=== PATIENT | male | born 1960 | race African-American/Black ===

== ENCOUNTER 2017-09-14 12:27 | Inpatient (IN) | payer OTHER ==
[2017-09-14] MEDS ORDERED: FAMOTIDINE 20 MG/2 ML VIAL IV ONE (13:58)
[2017-09-14] MEDS ORDERED: PANTOPRAZOLE 40 MG INJ ONE (13:58)
[2017-09-14 14:04] LABS: Absolute Lymphocytes (CBC) 1.6 K/uL (0.7-4.9); Absolute Monocytes 0.5 K/uL (0.1-1.3); Absolute Neutrophil 2.8 K/uL (1.8-8.0); Basophils % 0.5 % (0-1.3); Eosinophils % 0.8 % (0-4.4); Lymphocytes % 31.9 % (15.3-44.8); MCH 21.6 pg (27.0-35.0); MCV 66.8 fL (80-100); MPV 9.1 fL (7.6-11.3); Monocytes % 10.4 % (3.3-12.3); RBC Red Blood Cell Count 2.79 M/uL (4.33-5.43)
[2017-09-14 14:09] LABS: Protime INR 1.03
[2017-09-14 14:20] LABS: Hematocrit 18.6 % (39.6-49.0)
--- NOTE | 2017-09-14 14:22 | RAD REPORT ---
EXAM DESCRIPTION: Olga Single View09/14/2017 1:36 pm CLINICAL HISTORY: Shortness of breath COMPARISON: none FINDINGS: The lungs appear clear of acute infiltrate. The heart is mildly to moderately enlarged IMPRESSION: No acute abnormalities displayed
[2017-09-14 14:34] LABS: ALT/SGPT 22 U/L (12-78); AST/SGOT 27 U/L (15-37); Albumin 2.9 g/dL (3.4-5.0); Alkaline Phosphatase 72 U/L (45-117); BUN Blood Urea Nitrogen 46 mg/dL (7-18); Bicarbonate 27 mmol/L (21-32); Bilirubin Direct < 0.1 mg/dL (0-0.2); Bilirubin Total 0.2 mg/dL (0.2-1.0); CKMB Creatine Kinase MB 1.4 ng/mL (0.3-3.6); Creatine Phosphokinase 84 U/L (39-308); Glucose Level 113 mg/dL (74-106); Lipase 264 U/L (73-393); Magnesium 2.5 mg/dL (1.8-2.4); Potassium 4.5 mmol/L (3.5-5.1); Protein, Total 6.5 g/dL (6.4-8.2); Sodium Level 142 mmol/L (136-145)
--- NOTE | 2017-09-14 14:34 | EKG ---
Test Date: 2017-09-14 Test Time: 13:17:03 Fuse Cup Expander: DOMINIK MEASUREMENT RESULTS: Intervals: Rate: 73 GA: 230 QRSD: 92 QT: 392 QTc: 431 [place]: P: 62 GA: 230 QRS: 39 T: -23 INTERPRETIVE STATEMENTS: Sinus rhythm with 1st degree AV block with fusion complexes Left ventricular hypertrophy with repolarization abnormality Abnormal ECG No previous ECG available for comparison Electronically Signed On 09-14-17 14:33:20 CDT by Raymundo Contreras
[2017-09-14 15:05] LABS: Anisocytosis 1+; Blood Morphology Comment NOTED (NOT SEEN); Hypochromasia 2+; Platelet Estimate ADEQ; Polychromasia 1+; Urine White Blood Cell Casts OK
--- NOTE | 2017-09-14 15:44 | ER ---
Nurse's Notes [facility] Name: Ravindra Casas Age: 57 yrs Sex: Male : 1960 Arrival Date: 09/14/2017 Time: 12:27 Bed 13 Private MD: Diagnosis: Gastrointestinal hemorrhage, unspecified;Anemia in chronic diseases classified elsewhere Presentation: 09/14 12:28 Presenting complaint: EMS states: sent to ER for evaluation of low HGB 6.1. Transition ss of care: patient was received from another setting of care (long-term care facility), [facility]. Onset of symptoms is unknown. Risk Assessment: Do you want to hurt yourself or someone else? Patient reports no desire to harm self or others. Initial Sepsis Screen: Does the patient meet any 2 criteria? No. Patient's initial sepsis screen is negative. Does the patient have a suspected source of infection? No. Patient's initial sepsis screen is negative. Care prior to arrival: None. 12:28 Method Of Arrival: EMS: [facility] ss 12:28 Acuity: TRAVIS 3 ss Historical: - Allergies: 14:52 No Known Allergies; ph - Home Meds: 14:52 Acidophilus Oral cap [Active]; amlodipine 10 mg tab 1 tab once daily [Active]; aspirin ph 81 mg Oral TbEC 1 tab once daily [Active]; Bactrim DS 800-160 mg Oral tab 1 tab every 12 hours [Active]; Cardura 2 mg Oral tab 1 tab twice a day [Active]; carvedilol 25 mg oral tab 1 tab 2 times per day [Active]; clopidogrel 75 mg oral tab 1 tab once daily [Active]; ferrous sulfate 325 mg (65 mg iron) Oral tab twice a day [Active]; guanfacine 1 mg Oral tab 2 tabs nightly [Active]; hydralazine 100 mg Oral tab 1 tab 3 times per day [Active]; minocycline 100 mg Oral cap 1 cap every 12 hours [Active]; acetaminophen-codeine 300-30 mg Oral tab 1 tab every 8 hours [Active]; - PMHx: 14:52 Diabetes - NIDDM; CAD; Ulcers; gastric; Hypertension; CVA; Anemia; ph - Immunization history:: Adult Immunizations up to date. - Social history:: Smoking status: Patient/guardian denies using tobacco. - Ebola Screening: : No symptoms or risks identified at this time. Screenin:52 Abuse screen: Denies threats or abuse. Denies injuries from another. Nutritional ph screening: No deficits noted. Tuberculosis screening: No symptoms or risk factors identified. Fall Risk No fall in past 12 months (0 pts). Secondary diagnosis (15 points) CVA, IV access (20 points). Ambulatory Aid- None/Bed Rest/Nurse Assist (0 pts). Gait- Impaired (20 pts.). Mental Status- Overestimates/Forgets Limitations (15 pts.). Total Hall Fall Scale indicates High Risk Score (45 or more points). Fall prevention measures have been instituted. Side Rails Up X 2 Placed Close to Nursing Station Frequent Obs/Assessments Occuring As available patient and family educated on Fall Prevention Program and Strategies. Assessment: 13:00 General: Appears in no apparent distress. comfortable, slender, Behavior is calm, ph cooperative. Pain: Denies pain. Neuro: Level of Consciousness is awake, alert, obeys commands, Oriented to person, place. Cardiovascular: Denies chest pain, nausea, shortness of breath, vomiting, Capillary refill < 3 seconds Patient's skin is warm and dry. Respiratory: Airway is patent Respiratory effort is even, unlabored. GI: Abdomen is flat, non-distended, PEG tube in place, clamped. Site clean. Patient currently denies diarrhea, nausea, vomiting. Derm: Skin is intact, is healthy with good turgor, Skin is dry, Skin is normal, Skin temperature is warm. 14:30 Reassessment: Patient appears in no apparent distress at this time. No changes from ph previously documented assessment. Patient and/or family updated on plan of care and expected duration. Pain level reassessed. 15:30 Reassessment: Patient appears in no apparent distress at this time. Patient and/or ph family updated on plan of care and expected duration. Pain level reassessed. Pt resting quietly, watching TV, denies pain, VSS. 16:39 Reassessment: Patient appears in no apparent distress at this time. Patient and/or ph family updated on plan of care and expected duration. Pain level reassessed. Pt awake and alert, oriented to person and place only, awaiting blood products from lab, pt denies pain or nausea, brief checked and found to be dry w/ no stool noted. 18:09 Reassessment: Patient appears in no apparent distress at this time. Patient and/or ph family updated on plan of care and expected duration. Pain level reassessed. Report called to Elbert Rincon RN, pt waiting to be transported to 4th floor. 18:22 Reassessment: Patient appears in no apparent distress at this time. Patient and/or ph family updated on plan of care and expected duration. Pain level reassessed. Pt cleaned of incontinence prior to being transported to floor, large amount of urine noted, small amount of black, tarry stool also noted w/ no diarrhea. Vital Signs: 12:28 BP 141 / 67; Pulse 74; Resp 16; Temp 98.2(TE); Pulse Ox 100% on R/A; ss 13:30 BP 151 / 69; Pulse 71; Resp 18; Pulse Ox 99% on R/A; ph 14:30 BP 148 / 66; Pulse 71; Resp 16; Pulse Ox 99% on R/A; ph 15:30 BP 142 / 78; Pulse 72; Resp 16; Pulse Ox 99% on R/A; ph 16:38 BP 150 / 74; Pulse 73; Resp 16; Pulse Ox 98% on R/A; ph 18:10 BP 137 / 66; Pulse 72; Resp 16; Temp 98.0; Pulse Ox 100% on R/A; ph ED Course: 12:27 Patient arrived in ED. ss 12:28 Arm band placed on right wrist. ss 12:32 Triage completed. ss 12:33 Dennis Miranda PA is PHCP. cp 12:33 Dennis Rodriguez MD is Attending Physician. cp 12:34 Served as a personal banking representative during rectal exam. + occult blood (stool). ss 12:37 Jossy Moya, ANY is Primary Nurse. ss 13:34 EKG done, by aviation safety technician. reviewed by Dennis DELGADO. at1 13:35 Initial lab(s) drawn, by tx, sent to lab. T\T\S collected, blood band applied to patient. dh3 Inserted saline lock: 22 gauge in right forearm, using aseptic technique. Blood collected. 13:36 XRAY Chest (1 view) In Process Unspecified. EDMS 13:43 X-ray completed. Portable x-ray completed in exam room. Patient tolerated procedure ag1 well. 14:17 Ayah Mary, RN is Primary Nurse. ph 14:54 Patient has correct armband on for positive identification. Placed in gown. Bed in low ph position. Call light in reach. Side rails up X2. nuclear monitoring technician on. Pulse ox on. NIBP on. Warm blanket given. 15:42 Chapis Soria MD is Hospitalizing Provider. cp 18:10 Patient admitted, IV remains in place. ph Administered Medications: 14:01 Drug: ProTONIX 40 mg Route: IVP; Site: right forearm; ph 16:42 Follow up: Response: No adverse reaction ph 14:01 Drug: Pepcid 20 mg Route: IVP; Site: right forearm; ph 16:42 Follow up: Response: No adverse reaction ph 16:20 Drug: Zofran 4 mg Route: IVP; Site: right forearm; ph 16:42 Follow up: Response: No adverse reaction ph 16:45 Drug: ProTONIX 8 mg/hr Route: IV; Rate: 25 ml/hr; Site: right forearm; ph 17:51 Follow up: IV Status: Infusion continued upon admission ph 17:52 Follow up: Response: No adverse reaction ph Outcome: 15:43 Decision to Hospitalize by Provider. cp 18:09 Admitted to Tele accompanied by tech, via stretcher, room 430, with chart, Report ph called to Elbert Rincon RN 18:09 Condition: stable 18:09 Instructed on the need for admit. 18:23 Patient left the ED. ph Signatures: Dispatcher [employer] EDMS Jossy Moya RN RN ss Jeanie hinson, mud worker EKG Tat1 Ayah Mary RN RN ph [place], Ashley ag1 Dennis Miranda PA PA Rajni Bryan 3
--- NOTE | 2017-09-14 15:44 | EDPHYS ---
Physician Documentation [facility] Name: Ravindra Casas Age: 57 yrs Sex: Male : 1960 Arrival Date: 09/14/2017 Time: 12:27 Bed 13 Private MD: ED Physician Dennis Rodriguez HPI: 09/14 13:00 This 57 yrs old Black Male presents to ER via EMS with complaints of Abnormal Lab cp Results. 13:00 low hemoglobin and hematocrit level. cp 13:00 Onset: The symptoms/episode began/occurred at an unknown time. Severity of symptoms: in cp the emergency department the symptoms are unchanged. Patient is resident of [facility] and is being referred to ED for evaluation of low hemoglobin and hematocrit. Historical: - Allergies: 14:52 No Known Allergies; ph - Home Meds: 14:52 Acidophilus Oral cap [Active]; amlodipine 10 mg tab 1 tab once daily [Active]; aspirin ph 81 mg Oral TbEC 1 tab once daily [Active]; Bactrim DS 800-160 mg Oral tab 1 tab every 12 hours [Active]; Cardura 2 mg Oral tab 1 tab twice a day [Active]; carvedilol 25 mg oral tab 1 tab 2 times per day [Active]; clopidogrel 75 mg oral tab 1 tab once daily [Active]; ferrous sulfate 325 mg (65 mg iron) Oral tab twice a day [Active]; guanfacine 1 mg Oral tab 2 tabs nightly [Active]; hydralazine 100 mg Oral tab 1 tab 3 times per day [Active]; minocycline 100 mg Oral cap 1 cap every 12 hours [Active]; acetaminophen-codeine 300-30 mg Oral tab 1 tab every 8 hours [Active]; - PMHx: 14:52 Diabetes - NIDDM; CAD; Ulcers; gastric; Hypertension; CVA; Anemia; ph - Immunization history:: Adult Immunizations up to date. - Social history:: Smoking status: Patient/guardian denies using tobacco. - Ebola Screening: : No symptoms or risks identified at this time. ROS: 13:05 Hematologic/Lymphatic: Positive for anemia. cp 13:05 All other systems are negative. 13:05 Unable to obtain ROS due to patient's inability to understand questions. Exam: 13:12 Constitutional: The patient appears in no acute distress, alert, awake, cp non-diaphoretic, non-toxic, well developed, frail. 13:12 Head/Face: Normocephalic, atraumatic. cp 13:12 Eyes: Periorbital structures: appear normal, Pupils: equal, round, and reactive to light and accomodation, Conjunctiva: normal, no exudate, no injection, Sclera: no appreciated abnormality, Lids and lashes: appear normal, bilaterally. 13:12 ENT: External ear(s): are unremarkable, Ear canal(s): are normal, clear, TM's: bulging, is not appreciated, bilaterally, dullness, bilaterally, erythema, is not appreciated, bilaterally, Nose: is normal, Mouth: Lips: moist, Oral mucosa: moist, Posterior pharynx: is normal, airway is patent, no erythema, no exudate. 13:12 Neck: ROM/movement: is normal, is supple, without pain, no range of motions limitations. 13:12 Chest/axilla: Inspection: normal, Palpation: is normal, no crepitus, no tenderness. 13:12 Cardiovascular: Rate: normal, Rhythm: regular, JVD: is not appreciated. 13:12 Respiratory: the patient does not display signs of respiratory distress, Respirations: normal, no use of accessory muscles, no retractions, no splinting, no tachypnea, labored breathing, is not present, Breath sounds: are clear throughout, no decreased breath sounds, no stridor, no wheezing. 13:12 Abdomen/GI: Inspection: noted PEG tube in place LUQ, Bowel sounds: active, all quadrants, Palpation: abdomen is soft and non-tender, in all quadrants, rebound tenderness, is not appreciated, voluntary guarding, is not appreciated, involuntary guarding, is not appreciated, Rectal exam: Stool: guaiac positive, black. 13:12 Back: pain, is absent. 13:12 Musculoskeletal/extremity: Exam is negative for acute changes, deformity, injury. 13:12 Skin: cellulitis, is not appreciated, injury, is not appreciated. 13:12 Neuro: Orientation: no acute changes, per EMS, Mentation: no acute changes, per EMS. 13:25 ECG was reviewed by the Attending Physician. cp Vital Signs: 12:28 BP 141 / 67; Pulse 74; Resp 16; Temp 98.2(TE); Pulse Ox 100% on R/A; ss 13:30 BP 151 / 69; Pulse 71; Resp 18; Pulse Ox 99% on R/A; ph 14:30 BP 148 / 66; Pulse 71; Resp 16; Pulse Ox 99% on R/A; ph 15:30 BP 142 / 78; Pulse 72; Resp 16; Pulse Ox 99% on R/A; ph 16:38 BP 150 / 74; Pulse 73; Resp 16; Pulse Ox 98% on R/A; ph 18:10 BP 137 / 66; Pulse 72; Resp 16; Temp 98.0; Pulse Ox 100% on R/A; ph MDM: 12:35 Patient medically screened. cp 13:00 Differential Diagnosis upper GI bleed, anemia, lower GI bleed, anemia of chronic cp disease. 15:30 Data reviewed: vital signs, nurses notes, lab test result(s), EKG, radiologic studies, cp plain films. 15:30 Test interpretation: by ED physician or midlevel provider: ECG, plain radiologic cp studies. 15:35 Physician consultation: Shan Bill MD was called at 15:35, was contacted at 15:36, cp regarding consult, patient's condition, would like admission per Dr. Chapis Soria MD. 15:40 Physician consultation: Chapis Soria MD was contacted at 15:40, regarding admission, cp to the medical/surgical unit. 09/14 12:45 Order name: Basic Metabolic Panel; Complete Time: 14:36 cp 09/14 14:36 Interpretation: Normal except: CL 109; GLUC 113; BUN 46; CRE 1.80; GFR 48. cp 09/14 12:45 Order name: CBC with Diff cp 09/14 14:36 Interpretation: Normal except: RBC 2.79; HGB 6.0; HCT 18.6; MCV 66.8; MCH 21.6. cp 09/14 12:45 Order name: Ckmb; Complete Time: 14:36 cp 09/14 12:45 Order name: CPK; Complete Time: 14:36 cp 09/14 12:45 Order name: LFT's; Complete Time: 14:36 cp 09/14 12:45 Order name: Magnesium; Complete Time: 14:36 cp 09/14 12:45 Order name: PT-INR; Complete Time: 14:36 cp 09/14 12:45 Order name: Ptt, Activated; Complete Time: 14:36 cp 09/14 12:45 Order name: Troponin (emerg Dept Use Only); Complete Time: 14:36 cp 09/14 12:45 Order name: Type And Screen cp 09/14 12:45 Order name: Lipase; Complete Time: 14:36 cp 09/14 14:20 Order name: CBC Smear Scan EDKY 09/14 14:48 Order name: ABO/RH no charge EDMS 09/14 15:38 Order name: Bb Add On eb 09/14 12:45 Order name: XRAY Chest (1 view); Complete Time: 14:36 cp 09/14 12:45 Order name: EKG; Complete Time: 12:46 cp 09/14 12:45 Order name: Cardiac monitoring; Complete Time: 13:48 cp 09/14 12:45 Order name: EKG - Nurse/Tech; Complete Time: 13:48 cp 09/14 12:45 Order name: IV Saline Lock; Complete Time: 13:48 cp 09/14 12:45 Order name: Labs collected and sent; Complete Time: 13:49 cp 09/14 12:45 Order name: O2 Per Protocol; Complete Time: 13:49 cp 09/14 12:45 Order name: O2 Sat Monitoring; Complete Time: 13:49 cp 09/14 15:41 Order name: Packed RBC Leukored -1 EDMS EC:25 Rate is 73 beats/min. Rhythm is regular. IN interval is prolonged at 230 msec. QRS cp interval is normal. QT interval is normal. T waves are Peaked in leads V2, V3, V4. Interpreted by me. Reviewed by me. Administered Medications: 14:01 Drug: ProTONIX 40 mg Route: IVP; Site: right forearm; ph 16:42 Follow up: Response: No adverse reaction ph 14:01 Drug: Pepcid 20 mg Route: IVP; Site: right forearm; ph 16:42 Follow up: Response: No adverse reaction ph 16:20 Drug: Zofran 4 mg Route: IVP; Site: right forearm; ph 16:42 Follow up: Response: No adverse reaction ph 16:45 Drug: ProTONIX 8 mg/hr Route: IV; Rate: 25 ml/hr; Site: right forearm; ph 17:51 Follow up: IV Status: Infusion continued upon admission ph 17:52 Follow up: Response: No adverse reaction ph Disposition: 18:30 Chart complete. 09/15 06:44 Co-signature as Attending Physician, Dennis Rodriguez MD I agree with the assessment and ranjan plan of care. Disposition: 09/14/17 15:43 Hospitalization ordered by Chapis Soria for Inpatient Admission. Preliminary diagnosis are Gastrointestinal hemorrhage, unspecified, Anemia in chronic diseases classified elsewhere. - Bed requested for Telemetry/MedSurg (Inpatient). - Status is Inpatient Admission. ph - Condition is Stable. - Problem is new. - Symptoms are unchanged. UTI on Admission? No Signatures: Dispatcher [employer] Katiana Philip RN RN dw Dennis Rodriguez MD MD cha Hall, Patricia, RN RN Dennis Miranda PA PA cp Corrections: (The following items were deleted from the chart) 09/14 16:32 15:43 Hospitalization Ordered by Chapis Soria MD for Inpatient Admission. Preliminary cp diagnosis is Gastrointestinal hemorrhage, unspecified; Anemia in chronic diseases classified elsewhere. Bed requested for Intensive Care Unit. Status is Inpatient Admission. Condition is Stable. Problem is new. Symptoms are unchanged. UTI on Admission? No. cp 17:23 16:32 09/14/2017 15:43 Hospitalization Ordered by Chapis Soria MD for Inpatient dw Admission. Preliminary diagnosis is Gastrointestinal hemorrhage, unspecified; Anemia in chronic diseases classified elsewhere. Bed requested for Telemetry/MedSurg (Inpatient). Status is Inpatient Admission. Condition is Stable. Problem is new. Symptoms are unchanged. UTI on Admission? No. cp 18:23 17:23 09/14/2017 15:43 Hospitalization Ordered by Chapis Soria MD for Inpatient ph Admission. Preliminary diagnosis is Gastrointestinal hemorrhage, unspecified; Anemia in chronic diseases classified elsewhere. Bed requested for Telemetry/MedSurg (Inpatient). Status is Inpatient Admission. Condition is Stable. Problem is new. Symptoms are unchanged. UTI on Admission? No. dw
[2017-09-14] MEDS ORDERED: ONDANSETRON 4 MG/2 ML VIAL ONE (16:30)
[2017-09-14] MEDS: PANTOPRAZOLE INJ 80 MG in NA CHLORIDE 0.9% 250 ML IV SCH (17:00)
--- NOTE | 2017-09-14 17:18 | P.HP ---
Certification for Inpatient Patient admitted to: Inpatient With expected LOS: >2 Midnights Patient will require the following post-hospital care: None Practitioner: I am a practitioner with admitting privileges, knowledge of patient current condition, hospital course, and medical plan of care. Services: Services provided to patient in accordance with Admission requirements found in Title 42 Section 412.3 of the Code of Federal Regulations Patient History Date of Service: 09/14/17 Primary Care Provider: Dr Sanford at [facility] Reason for admission: Anemia History of Present Illness: This is a 57-year-old male with significant past medical history of hypertension , diabetes, CVA with residual weakness and dementia, CAD, gastric ulcer who [facility] ED [facility]. Patient had lab work done which was consistent with hemoglobin of 5.9 and thus was sent over to the hospital for further workup. Patient has been having some crack tarry stools at the [facility] as well. Currently patient is unable to provide any information as patient is demented and no family member is at bedside to get more information. Most of the information was collected by the ER physician. ER physician stated that patient does not have any other associated symptoms that they were notified from the [facility] other than him having low hemoglobin and black tarry stools. Home medications list reviewed: Yes - Past Medical/Surgical History Diabetic: Yes -: HTN -: Diabetes -: CVA -: CAD -: Gastric ulcer Past Surgical History: Unable to obtain - Family History Family History: Reviewed- Non-Contributory - Social History Smoking Status: Unknown if ever smoked Place of Residence: Skilled Nursing Review of Systems General: As per HPI Physical Examination - Physical Exam General: Alert, Demented, Mild distress HEENT: Atraumatic Neck: Supple Respiratory: Normal air movement, Dull Cardiovascular: Regular rate/rhythm, Normal S1 S2 Gastrointestinal: Normal bowel sounds, Soft and benign, Non-distended, No tenderness Musculoskeletal: No tenderness Integumentary: No rashes Neurological: Normal speech, Normal tone Lymphatics: No axilla or inguinal lymphadenopathy - Studies Laboratory Data (last 24 hrs) 09/14/17 13:35: PT 12.1, INR 1.03, APTT 31.4 09/14/17 13:35: WBC 5.0, Hgb 6.0 L*, Hct 18.6 L*, Plt Count 249 09/14/17 13:35: Sodium 142, Potassium 4.5, BUN 46 H, Creatinine 1.80 H, Glucose 113 H, Magnesium 2.5 H, Total Bilirubin 0.2, AST 27, ALT 22, Alkaline Phosphatase 72, Lipase 264 Assessment and Plan - Problems (Diagnosis) (1) GI bleed Current Visit: Yes Status: Acute Plan: GI bleeding with Acute blood loss anemia. Pt with black tarry stools and Hgb of 6 on presentation -GI consulted. Awaiting reccs -IV protonix ggt -H/H q4h -Transfuse 2 units PRBC for now -IV fluids -Hold anticoagulation Qualifiers: GI bleed type/associated pathology: melena Qualified Code(s): K92.1 - Melena (2) HTN (hypertension) Current Visit: Yes Status: Chronic Plan: Restart home medication Qualifiers: Hypertension type: essential hypertension Qualified Code(s): I10 - Essential (primary) hypertension (3) Diabetes Current Visit: Yes Status: Chronic Plan: ISS Qualifiers: Diabetes mellitus type: type 2 Diabetes mellitus intermediate insulin use: without intermediate use Diabetes mellitus complication status: without complication Qualified Code(s): E11.9 - Type 2 diabetes mellitus without complications (4) CVA (cerebral vascular accident) Current Visit: Yes Status: Chronic Qualifiers: CVA mechanism: unspecified Qualified Code(s): I63.9 - Cerebral infarction, unspecified (5) History of gastric ulcer Current Visit: Yes Status: Chronic Plan: h/o Of Gastric Ulcers in the past -S.P Banding Discharge Plan: Home Plan to discharge in: 72 Hours - Advance Directives Does patient have a Living Will: No Does patient have a Durable POA for Healthcare: No - Code Status/Comfort Care Code Status Assessed: Yes Critical Care: No
[2017-09-14] MEDS ORDERED: PANTOPRAZOLE INJ 80 MG in NA CHLORIDE 0.9% 250 ML IV SCH (18:42)
[2017-09-14] MEDS: INSULIN -REGULAR HUMAN 50 UNIT/0.5 ML ML SQ SCH ×2 (18:42→20:20)
[2017-09-14] MEDS ORDERED: ACETAMINOPHEN 500 MG TAB PO PRN (18:42)
[2017-09-14] MEDS ORDERED: ONDANSETRON 4 MG/2 ML VIAL IV PRN (18:42)
[2017-09-14 19:08] LABS: Hematocrit 19.3 % (39.6-49.0)
[2017-09-14] MEDS: NA CHLORIDE 0.9% 1,000 ML IV SCH (20:20)
[2017-09-14] MEDS: ENOXAPARIN 40 MG/0.4 ML SQ SCH (20:20)
[2017-09-14] MEDS ORDERED: GLUCAGON 1 MG/VIAL IM PRN (21:47)
[2017-09-14] MEDS ORDERED: D50W 25 GM/50 ML SYRINGE IV PRN (21:47)
[2017-09-14 22:50] LABS: Hematocrit 19.4 % (39.6-49.0)
[2017-09-15] MEDS ORDERED: NA CHLORIDE 0.9% 500 ML ONE (01:17)
[2017-09-15] MEDS: PANTOPRAZOLE INJ 80 MG in NA CHLORIDE 0.9% 250 ML IV SCH ×4 (03:06→23:17)
[2017-09-15] MEDS: NA CHLORIDE 0.9% 1,000 ML IV SCH ×4 (04:42→21:46)
[2017-09-15] MEDS: INSULIN -REGULAR HUMAN 50 UNIT/0.5 ML ML SQ SCH ×4 (06:00→17:44)
[2017-09-15 06:42] LABS: Absolute Lymphocytes (CBC) 1.9 K/uL (0.7-4.9); Absolute Monocytes 0.5 K/uL (0.1-1.3); Absolute Neutrophil 2.4 K/uL (1.8-8.0); Basophils % 0.6 % (0-1.3); Bilirubin Total 0.4 mg/dL (0.2-1.0); Eosinophils % 1.7 % (0-4.4); Hematocrit 22.8 % (39.6-49.0); Lymphocytes % 38.4 % (15.3-44.8); MCH 23.3 pg (27.0-35.0); MCV 71.5 fL (80-100); MPV 9.1 fL (7.6-11.3); Magnesium 2.3 mg/dL (1.8-2.4); Monocytes % 9.5 % (3.3-12.3); Phosphorus 3.1 mg/dL (2.5-4.9); Potassium 4.3 mmol/L (3.5-5.1); Protein, Total 6.6 g/dL (6.4-8.2)
[2017-09-15] MEDS: ENOXAPARIN 40 MG/0.4 ML SQ SCH (08:45)
[2017-09-15] MEDS ORDERED: HYDRALAZINE HCL 20 MG/ML VIAL IV ONE ×2 (10:06→16:40)
--- NOTE | 2017-09-15 14:57 | P.PN ---
Subjective Date of Service: 09/15/17 Primary Care Provider: Dr Sanford at the [place] Chief Complaint: Anemia Subjective: No C/O voiced, Improving, NPO, Doing well Scheduled for EGD today. At baseline patient is demented and debilitate due to CVA in the past. Review of Systems General: As per HPI Physical Examination - Vital Signs Temperature: 97.5 F Blood Pressure: 168/75 Pulse: 71 Respirations: 16 Pulse Ox (%): 100 - Physical Exam General: Alert, Oriented x1, Demented HEENT: Atraumatic Neck: Supple Respiratory: Clear to auscultation bilaterally, Normal air movement Cardiovascular: Regular rate/rhythm, Normal S1 S2 Gastrointestinal: Normal bowel sounds, Soft and benign, Non-distended, No tenderness Musculoskeletal: No tenderness Integumentary: No rashes Neurological: Normal tone, Abnormal speech, Abnormal affect Lymphatics: No axilla or inguinal lymphadenopathy - Studies Medications List Reviewed: Yes Assessment & Plan - Problems (Diagnosis) (1) GI bleed Onset Date: 09/15/17 Current Visit: Yes Status: Acute Plan: GI bleeding with Acute blood loss anemia. Pt with black tarry stools and Hgb of 6 on presentation -GI consulted. Reccs Appreciated -Scheduled for EGD today. -IV protonix ggt -S/p Transfuse 2 units PRBC -IV fluids -Hold anticoagulation Qualifiers: GI bleed type/associated pathology: melena Qualified Code(s): K92.1 - Melena (2) HTN (hypertension) Onset Date: 09/15/17 Current Visit: Yes Status: Chronic Plan: Restart home medication Qualifiers: Hypertension type: essential hypertension Qualified Code(s): I10 - Essential (primary) hypertension (3) Diabetes Onset Date: 09/15/17 Current Visit: Yes Status: Chronic Plan: ISS Qualifiers: Diabetes mellitus type: type 2 Diabetes mellitus buttermilk drier operator insulin use: without buttermilk drier operator use Diabetes mellitus complication status: without complication Qualified Code(s): E11.9 - Type 2 diabetes mellitus without complications (4) CVA (cerebral vascular accident) Onset Date: 09/15/17 Current Visit: Yes Status: Chronic Qualifiers: CVA mechanism: unspecified Qualified Code(s): I63.9 - Cerebral infarction, unspecified (5) History of gastric ulcer Current Visit: Yes Status: Chronic Plan: h/o Of Gastric Ulcers in the past -S.P Banding Discharge Plan: Jail Plan to discharge in: 48 Hours - Code Status/Comfort Care Code Status Assessed: Yes Critical Care: No
[2017-09-15 15:23] LABS: Hematocrit 28.6 % (39.6-49.0)
[2017-09-15] MEDS: GLUCERNA 1.5 CAL 1,000 ML BOT FT SCH (17:09)
[2017-09-15] MEDS ORDERED: LORazepam 2 MG/ML VIAL IV ONE (17:29)
[2017-09-15] MEDS: FERROUS SULFATE 325 MG TAB PO SCH (21:00)
[2017-09-15] MEDS: CARVEDILOL 25 MG TAB PO SCH (21:32)
[2017-09-15] MEDS: GUANFACINE HCL 1 MG TAB PO SCH (21:33)
[2017-09-15] MEDS: HYDRALAZINE HCL 10 MG TABLET PO SCH (21:33)
[2017-09-15] MEDS: DOXAZOSIN 2 MG TAB PO SCH (21:33)
[2017-09-16] MEDS: NA CHLORIDE 0.9% 1,000 ML IV SCH ×3 (00:42→15:12)
[2017-09-16] MEDS ORDERED: CLONIDINE HCL 0.3 MG TAB FT ONE (01:29)
[2017-09-16] MEDS ORDERED: HYDROMORPHONE HCL 2 MG/ML inj ONE (01:46)
[2017-09-16] MEDS ORDERED: HYDROMORPHONE HCL 1 MG/ML INJ IV PRN (04:28)
[2017-09-16] MEDS ORDERED: HYDRALAZINE HCL 20 MG/ML VIAL IV PRN (04:28)
[2017-09-16] MEDS: INSULIN -REGULAR HUMAN 50 UNIT/0.5 ML ML SQ SCH ×4 (06:00→18:00)
[2017-09-16 06:13] LABS: Absolute Lymphocytes (CBC) 1.1 K/uL (0.7-4.9); Absolute Monocytes 0.4 K/uL (0.1-1.3); Absolute Neutrophil 2.5 K/uL (1.8-8.0); Basophils % 0.5 % (0-1.3); Eosinophils % 3.7 % (0-4.4); Hematocrit 28.8 % (39.6-49.0); Lymphocytes % 26.8 % (15.3-44.8); MCH 23.4 pg (27.0-35.0); MCV 71.3 fL (80-100); MPV 8.9 fL (7.6-11.3); Monocytes % 9.4 % (3.3-12.3); RBC Red Blood Cell Count 4.04 M/uL (4.33-5.43)
[2017-09-16 06:18] LABS: Albumin 2.9 g/dL (3.4-5.0); Bilirubin Total 0.3 mg/dL (0.2-1.0); Magnesium 2.2 mg/dL (1.8-2.4); Phosphorus 2.5 mg/dL (2.5-4.9); Potassium 4.5 mmol/L (3.5-5.1); Protein, Total 6.6 g/dL (6.4-8.2)
[2017-09-16] MEDS: HYDRALAZINE HCL 10 MG TABLET PO SCH ×3 (09:00→20:22)
[2017-09-16] MEDS ORDERED: AMLODIPINE 10 MG TAB PO SCH (09:00)
[2017-09-16] MEDS: CARVEDILOL 25 MG TAB PO SCH ×2 (09:00→20:22)
[2017-09-16] MEDS: ENOXAPARIN 40 MG/0.4 ML SQ SCH (09:00)
[2017-09-16] MEDS: FERROUS SULFATE 325 MG TAB PO SCH ×2 (09:00→20:23)
[2017-09-16] MEDS: ASPIRIN EC 81 MG TAB PO SCH (09:00)
[2017-09-16] MEDS: DOXAZOSIN 2 MG TAB PO SCH (09:00)
[2017-09-16] MEDS: PANTOPRAZOLE INJ 80 MG in NA CHLORIDE 0.9% 250 ML IV SCH ×2 (10:13→17:50)
[2017-09-16] MEDS ORDERED: EPINEPHRINE/PF 1 MG/ML AMP ONE (10:51)
[2017-09-16] MEDS ORDERED: NA CHLORIDE 0.9% 1,000 ML ONE (11:10)
[2017-09-16] MEDS ORDERED: LIDOCAINE 1% MPF 5 ML VIAL ONE (11:36)
[2017-09-16] MEDS ORDERED: PROPOFOL 200 MG/20 ML VIAL IV ONE ×2 (11:36)
[2017-09-16] MEDS ORDERED: EPHEDRINE SULF 50 MG/ML SYR ONE (12:58)
--- NOTE | 2017-09-16 13:07 | ENDO RPT ---
[address], [address] EGD PROCEDURE REPORT EXAM DATE: 09/16/2017 PATIENT NAME: Ravindra Casas MR#: [id number] BIRTHDATE: 1960 ATTENDING: Shan Bill Dr STATUS: inpatient - 7 CORPORATE PLANNER: Ni Felix and Minerva Easley RN INDICATIONS: The patient is a 57 yr old Male here for an EGD due to melenic bleeding and anemia PROCEDURE PERFORMED: EGD with biopsy MEDICATIONS: Per Anesthesia. TOPICAL ANESTHETIC: none CONSENT: The patient understands the risks and benefits of the procedure and understands that these risks include, but are not limited to: sedation, allergic reaction, infection, perforation and/or bleeding. Alternative means of evaluation and treatment include, among others: physical exam, x-rays, and/or surgical intervention. The patient elects to proceed with this endoscopic procedure. DESCRIPTION OF PROCEDURE: During intra-op preparation period all mechanical medical equipment was checked for proper function. Hand hygiene and appropriate measures for infection prevention was taken. Procedure, possible complications, and alternatives including but not limited to the possibility of bleeding, perforation, tear, infection, sepsis, need for surgery, need for blood transfusion, and anesthesia related complications were explained to the patient. After the risks, benefits and alternatives of the procedure were thoroughly explained, Informed consent was verified, confirmed and timeout was successfully executed by the treatment team. The patient was placed in the left lateral position. The patient was anesthetized with topical anesthesia. Through the anesthetized oropharyngeal area, the scope was passed without any difficulty. The [id number] ([id number]) endoscope was introduced through the mouth and advanced to the third portion of the duodenum. Retroflexed views revealed a small hiatal hernia. The gastroscope was then slowly withdrawn and removed. A small hiatal hernia was found Mild gastritis was found in the antrum. Multiple biopsies were obtained and sent to pathology. Mild duodenitis was found in the bulb of the duodenum. Duodenitis with black/white spotted pattern was found in the second / third portions of the duodenum. Multiple biopsies were obtained and sent to pathology. ADVERSE EVENTS: There were no complications. IMPRESSIONS: 1. Small hiatal hernia 2. Mild gastritis in the antrum 3. Mild duodenitis with two erosions in the bulb of the duodenum 4. Duodenitis with black/white spotted pattern in the second / third portions of the duodenum, s/p biopsies RECOMMENDATIONS: 1. await biopsy results 2. acid suppression therapy REPEAT EXAM: Shan Bill Dr eSigned: Shan Bill Dr 09/16/2017 1:07 PM cc: CPT CODES: ICD9 CODES: PATIENT NAME: Ravindra Casas MR#: [id number]
--- NOTE | 2017-09-16 13:09 | P.PN ---
Subjective Date of Service: 09/16/17 Primary Care Provider: Dr Sanford at the [facility] Chief Complaint: Anemia Pt seen and examined at bedside. Chart reviewed. Scheduled for EGD today. At baseline patient is demented and debilitate due to CVA in the past. Was not able to get EGD yesterday as we were not able to obtain Consent Review of Systems General: As per HPI Physical Examination - Vital Signs Temperature: 97.1 F Blood Pressure: 138/65 Pulse: 62 Respirations: 18 Pulse Ox (%): 99 - Physical Exam General: Alert, Demented HEENT: Atraumatic Neck: Supple, JVD not distended Respiratory: Normal air movement, Expiratory wheezes, Inspiratory wheezes Cardiovascular: Regular rate/rhythm, Normal S1 S2 Gastrointestinal: Normal bowel sounds, Soft and benign, Non-distended, No tenderness, Other (PEG tube in place ) Musculoskeletal: No tenderness Integumentary: No rashes Neurological: Normal tone, Abnormal speech, Abnormal affect Lymphatics: No axilla or inguinal lymphadenopathy - Studies Medications List Reviewed: Yes Assessment & Plan - Problems (Diagnosis) (1) GI bleed Onset Date: 09/15/17 Current Visit: Yes Status: Acute Plan: GI bleeding with Acute blood loss anemia. Pt with black tarry stools and Hgb of 6 on presentation. -GI consulted. Reccs Appreciated -Scheduled for EGD today. -IV protonix ggt and IV fluids -S/p Transfuse 2 units PRBC hgb improved to 9.3. However patient continues with Black tarry stools. -Hold anticoagulation Qualifiers: GI bleed type/associated pathology: melena Qualified Code(s): K92.1 - Melena (2) HTN (hypertension) Onset Date: 09/15/17 Current Visit: Yes Status: Chronic Plan: Restart home medication Qualifiers: Hypertension type: essential hypertension Qualified Code(s): I10 - Essential (primary) hypertension (3) Diabetes Onset Date: 09/15/17 Current Visit: Yes Status: Chronic Plan: ISS Qualifiers: Diabetes mellitus type: type 2 Diabetes mellitus lobsterman insulin use: without lobsterman use Diabetes mellitus complication status: without complication Qualified Code(s): E11.9 - Type 2 diabetes mellitus without complications (4) CVA (cerebral vascular accident) Onset Date: 09/15/17 Current Visit: Yes Status: Chronic Qualifiers: CVA mechanism: unspecified Qualified Code(s): I63.9 - Cerebral infarction, unspecified (5) History of gastric ulcer Current Visit: Yes Status: Chronic Plan: h/o Of Gastric Ulcers in the past -S.P Banding Discharge Plan: [facility] Plan to discharge in: 48 Hours - Code Status/Comfort Care Code Status Assessed: Yes Critical Care: No
[2017-09-16] MEDS ORDERED: NALOXONE 0.4 MG/ML VIAL IV ONE ×2 (14:34→14:44)
[2017-09-16] MEDS ORDERED: RSI MEDICATION KIT IV ONE (15:19)
[2017-09-16] MEDS ORDERED: PROPOFOL 1,000 MG/100 ML VIAL IV PRN (16:08)
[2017-09-16] MEDS ORDERED: HALOPERIDOL LACT 5 MG/ML INJ IV PRN (16:08)
[2017-09-16] MEDS ORDERED: MIDAZOLAM HCL 2 MG/2 ML INJ IV PRN (16:08)
--- NOTE | 2017-09-16 16:15 | RAD REPORT ---
EXAM DESCRIPTION: Olga Single View09/16/2017 4:07 pm CLINICAL HISTORY: Shortness of breath COMPARISON: September 14, 2017 FINDINGS: An endotracheal tube has its tip well above the lubna. A nasogastric tube is present wit hin the duodenal bulb [id number] bilateral alveolar opacities have developed. The heart is enlarged IMPRESSION: Moderate to marked bilateral alveolar opacities probably representing pulmonary edema
[2017-09-16 16:16] LABS: Arterial Blood Carboxyhemoglob 1.5 % (0-1.5); Blood O2 Saturation 74.3 % (92-98.5)
[2017-09-16] MEDS ORDERED: NOREPINEPHRINE 4 MG in D5W 250 ML IV PRN (17:07)
[2017-09-16] MEDS ORDERED: FUROSEMIDE 20 MG/ 2ML VIAL IV ONE (17:11)
[2017-09-16] MEDS: LORazepam 2 MG/ML VIAL IV PRN (17:38)
[2017-09-16 17:42] LABS: Absolute Lymphocytes (CBC) 0.3 K/uL (0.7-4.9); Absolute Neutrophil 2.1 K/uL (1.8-8.0); Basophils % 0.5 % (0-1.3); Eosinophils % 0.8 % (0-4.4); Hematocrit 31.6 % (39.6-49.0); Lymphocytes % 13.7 % (15.3-44.8); MCH 22.9 pg (27.0-35.0); MCV 72.2 fL (80-100); MPV 8.8 fL (7.6-11.3); RBC Red Blood Cell Count 4.37 M/uL (4.33-5.43)
[2017-09-16] MEDS ORDERED: SUCCINYLCHOLINE 20 MG/ML (10 ML) IV ONE (17:46)
--- NOTE | 2017-09-16 17:58 | P.PN ---
Date of Service: 09/16/17 Pt was examined post EGD. Pt received Propofol during the procedure. Code yellow was called as pt was having respiratory failure and hypotension. Pt was given Narcan but no improvement. ABG consistent with PO2 of 44 and PH of 7.23 on Non rebreather. BP was consistent with 69/42. Pt was transferred to ICU and Placed on BIPAP. Pt was not responding to BIPAP and thus was intubated. Started on Pressor for now. EGD was consistent with Gastritis and duodenitis. Xray post intubation was consistent with Pulmonary opacities consistent with Edema vs PNA. Started IV antibiotivs and Lasix x 1 given.
[2017-09-16] MEDS ORDERED: Levofloxacin500mg IV 500 MG/100 ML BAG IV SCH (18:00)
[2017-09-16 18:01] LABS: Albumin 2.5 g/dL (3.4-5.0); Bilirubin Total 0.5 mg/dL (0.2-1.0); Protein, Total 5.6 g/dL (6.4-8.2)
[2017-09-16 18:11] LABS: Blood Morphology Comment NOT SEEN (NOT SEEN); Platelet Estimate ADEQ; Urine White Blood Cell Casts OK
--- NOTE | 2017-09-16 19:10 | EKG ---
Test Date: 2017-09-16 Test Time: 14:43:21 Buckle Frame Shaper: DOMINIK MEASUREMENT RESULTS: Intervals: Rate: 111 WI: 182 QRSD: 92 QT: 354 QTc: 481 Imperial: P: 25 WI: 182 QRS: 1 T: 150 INTERPRETIVE STATEMENTS: Sinus tachycardia Left ventricular hypertrophy with repolarization abnormality Nonspecific ST abnormality Abnormal ECG Compared to ECG 09/14/2017 13:17:03 ST (T wave) deviation now present Sinus rhythm no longer present Fusion complex(es) no longer present First degree AV block no longer present Electronically Signed On 09-16-17 19:08:54 CDT by Raymundo Contreras
[2017-09-16] MEDS: VANCOMYCIN 1.25 GM in NA CHLORIDE 0.9% 250 ML IV SCH (20:07)
[2017-09-16] MEDS: PIPER/TAZO/NS 3.375gm 3.375 GM/100 ML BAG IVPB SCH (20:07)
[2017-09-16] MEDS: GUANFACINE HCL 1 MG TAB PO SCH (20:23)
[2017-09-16] MEDS ORDERED: FAMOTIDINE 20 MG/2 ML VIAL IV SCH (21:00)
[2017-09-16] MEDS: FENTANYL CITR 100 MCG/2 ML IV PRN (22:04)
[2017-09-17] MEDS: LORazepam 2 MG/ML VIAL IV PRN
[2017-09-17] MEDS: PIPER/TAZO/NS 3.375gm 3.375 GM/100 ML BAG IVPB SCH ×3 (04:00→20:46)
[2017-09-17] MEDS: PANTOPRAZOLE INJ 80 MG in NA CHLORIDE 0.9% 250 ML IV SCH ×2 (04:00→15:14)
[2017-09-17] MEDS: FENTANYL CITR 100 MCG/2 ML IV PRN ×3 (04:45→19:26)
[2017-09-17 05:24] LABS: Arterial Blood Carboxyhemoglob 1.7 % (0-1.5); Blood Gas Oxyhemoglobin 97.5 % (94-97); Blood O2 Saturation 99.3 % (92-98.5)
[2017-09-17 05:31] LABS: Absolute Lymphocytes (CBC) 0.4 K/uL (0.7-4.9); Absolute Monocytes 0.5 K/uL (0.1-1.3); Basophils % 0.5 % (0-1.3); Eosinophils % 0.1 % (0-4.4); Hematocrit 25.9 % (39.6-49.0); Lymphocytes % 5.5 % (15.3-44.8); MCH 23.6 pg (27.0-35.0); MCV 72.1 fL (80-100); MPV 8.6 fL (7.6-11.3); Monocytes % 5.9 % (3.3-12.3); RBC Red Blood Cell Count 3.59 M/uL (4.33-5.43)
[2017-09-17 05:48] LABS: Albumin 2.3 g/dL (3.4-5.0); Bilirubin Total 1.1 mg/dL (0.2-1.0); Magnesium 1.8 mg/dL (1.8-2.4); Phosphorus 2.5 mg/dL (2.5-4.9); Potassium 3.6 mmol/L (3.5-5.1); Protein, Total 5.2 g/dL (6.4-8.2)
[2017-09-17] MEDS: INSULIN -REGULAR HUMAN 50 UNIT/0.5 ML ML SQ SCH ×4 (06:00→17:43)
[2017-09-17] MEDS ORDERED: D5 0.45 NS 1,000 ML IV SCH (07:00)
[2017-09-17] MEDS: HYDRALAZINE HCL 10 MG TABLET PO SCH (07:54)
[2017-09-17] MEDS: CARVEDILOL 25 MG TAB PO SCH ×2 (07:54→20:47)
[2017-09-17] MEDS ORDERED: MAGNESIUM SULFATE 1 gm IVPB 1 GM/100 ML BAG IV ONE (08:00)
[2017-09-17] MEDS ORDERED: KCL 20 MEQ/100 mL IVPB 20 MEQ/100 ML BAG IV SCH (08:00)
[2017-09-17] MEDS ORDERED: POTASSIUM PHOS IN 0.9 % NACL 15 MMOL/250 ML BAG IV ONE (08:00)
[2017-09-17 08:39] LABS: Blood Morphology Comment NOT SEEN (NOT SEEN); Platelet Estimate ADEQ; Urine White Blood Cell Casts OK
[2017-09-17] MEDS: ASPIRIN EC 81 MG TAB PO SCH (09:00)
[2017-09-17] MEDS: ENOXAPARIN 40 MG/0.4 ML SQ SCH (09:00)
[2017-09-17] MEDS: FERROUS SULFATE 325 MG TAB PO SCH ×2 (10:20→20:50)
--- NOTE | 2017-09-17 11:07 | RAD REPORT ---
EXAM DESCRIPTION: RAD - Chest Single View - 09/17/2017 10:46 am CLINICAL HISTORY: E-Tube placement, Resp. Failure Chest pain. COMPARISON: Chest Single View dated 09/16/2017; Chest Single View dated 09/14/2017 FINDINGS: Portable technique limits examination quality. Tip of the ET tube is above the lubna. Enteric tube extends into the stomach. Bilateral pulmonary op acities appear mildly improved since yesterday's study. IMPRESSION: Mild improvement in lung aeration since yesterday's examination.
[2017-09-17 11:26] LABS: Absolute Lymphocytes (CBC) 0.4 K/uL (0.7-4.9); Absolute Monocytes 0.6 K/uL (0.1-1.3); Absolute Neutrophil 8.1 K/uL (1.8-8.0); Basophils % 0.1 % (0-1.3); Eosinophils % 0.1 % (0-4.4); Hematocrit 25.2 % (39.6-49.0); Lymphocytes % 4.4 % (15.3-44.8); MCH 23.7 pg (27.0-35.0); MCV 72.2 fL (80-100); MPV 9.1 fL (7.6-11.3); Monocytes % 6.2 % (3.3-12.3); RBC Red Blood Cell Count 3.48 M/uL (4.33-5.43)
--- NOTE | 2017-09-17 11:26 | P.CNS ---
Date of Consult: 09/17/17 Primary Care Provider: Dr Sanford at the [facility] Chief Complaint: Respiratory failure History of Present Illness: Patient is 57 years of age a residential resident who is a history of stroke admitted with a GI bleeding he he did undergo an EGD was found to have gastritis postoperatively he developed respiratory distress had to be intubated became hypotensive transferred here to the ICU chest x-ray shows bilateral patchy infiltrates possible aspiration. Patient is currently on a ventilator nonverbal in only move his left arm he has right hemiparesis. He is currently hemodynamically stable weaned off vasopressors Allergies No Known Allergies Allergy (Unverified 09/14/17 18:27) Home Medications: Acetaminophen with Codeine [Acetaminophen-Cod #3 Tablet] 1 each PO Q8H 09/14/17 Amlodipine Besylate [Norvasc] 10 mg PO DAILY 09/14/17 Aspirin [Aspirin EC 81 MG] 81 mg PO DAILY 09/14/17 Carvedilol [Coreg] 25 mg PO BID 09/14/17 Clopidogrel Bisulfate [Plavix] 75 mg PO DAILY 09/14/17 Doxazosin [Cardura] 2 mg PO BID 09/14/17 Ferrous Sulfate [Feosol] 65 mg PO BID 09/14/17 Glucerna 1.5 Nelson 60 ml FT CONT 09/14/17 Guanfacine HCl [Tenex] 2 tab PO BEDTIME 09/14/17 Hydralazine [Apresoline] 10 mg PO TID 09/14/17 Lactobacillus Acidophilus [Acidophilus] 1 each PO DAILY 09/14/17 Minocycline HCl [Minocin] 100 mg PO BID 09/14/17 Smz./Tmp. [Bactrim Ds 800 MG/160 MG] 1 tab PO BID 09/14/17 - Past Medical/Surgical History Diabetic: Yes -: HTN -: Diabetes -: CVA -: CAD -: Gastric ulcer -: peg - Social History Alcohol use: No CD- Drugs: No Caffeine use: No Place of Residence: [place] Review of Systems is unable to be obtained Physical Examination Temp Pulse Resp BP Pulse Ox 97.8 F 70 17 105/63 100 09/17/17 04:00 09/17/17 07:00 09/17/17 07:00 09/17/17 07:00 09/17/17 07:00 General: Alert, Cooperative Neck: Supple Respiratory: Clear to auscultation bilaterally, Diminished Cardiovascular: Regular rate/rhythm Gastrointestinal: Normal bowel sounds, Soft and benign - Problems (1) Respiratory failure Current Visit: Yes Status: Acute Plan: Patient is 57 years of age admitted with respiratory distress possible aspiration pneumonia after a EGD admitted with anemia and GI bleed was found to have gastritis chest x-ray shows bilateral opacities patient's hemoglobin is satisfactory he was very anemic transfused he got 2 units of packed red blood cells oxygenation satisfactory cultures pending he is on vancomycin and Zosyn I have added some people continue with present therapy possible wean and extubate in a day or so patient is mildly hypernatremic kidney function is worse patient is on IV fluids Qualifiers: Chronicity: acute
[2017-09-17 11:38] LABS: Magnesium 2.1 mg/dL (1.8-2.4); Phosphorus 2.3 mg/dL (2.5-4.9); Potassium 3.7 mmol/L (3.5-5.1)
--- NOTE | 2017-09-17 11:41 | P.PN ---
Subjective Date of Service: 09/17/17 Primary Care Provider: Dr Sanford at the [place] Chief Complaint: Respiratory failure Pt seen and examined at bedside. Chart reviewed. Pt is currently Intubated. Overnight pt required Pressor and now successfully weaned off. Case DW with Pulmonology, GI and Cardiology at this time Review of Systems General: As per HPI Physical Examination - Vital Signs Temperature: 97.8 F Blood Pressure: 105/63 Pulse: 70 Respirations: 17 Pulse Ox (%): 100 - Physical Exam General: Mild distress, Other (Intubated and comfortable) HEENT: Atraumatic Neck: Supple Respiratory: Normal air movement, Diminished, Crackles/rales, Rhonchi/gurgles, Other (Tachypneic ) Cardiovascular: Regular rate/rhythm, Normal S1 S2 Gastrointestinal: Normal bowel sounds, Soft and benign, Non-distended, Other ( PEG tube in Place) Musculoskeletal: No clubbing, No swelling Integumentary: Skin breakdown Neurological: Normal reflexes 2+ - Studies Medications List Reviewed: Yes Assessment & Plan - Problems (Diagnosis) (1) Respiratory failure Current Visit: Yes Status: Acute Plan: Acute Respiratory Failure 2.2 to Hypoxia 2.2 to Aspiration PNA vs volume overload -Failed BIPAP and now Intubated -Vent Protocol and wean as tolerated -Pulmonology consulted. Reccs Apprecaited Qualifiers: Chronicity: acute Respiratory failure complication: hypoxia Qualified Code(s): J96.01 - Acute respiratory failure with hypoxia (2) Septic shock Current Visit: Yes Status: Acute Plan: Septic shock requiring pressor. -Elevated LA and Pt was started on Levophed yesterday -Now off the pressor -Sputum, Blood and Urine culture pending -Most likely 2.2 to Aspiration PNA -IV vanc and zosyn for now (3) Aspiration pneumonia Current Visit: Yes Status: Acute Plan: Aspiration PNA BL -IV vanc and Zosyn -Pulmonology consulted. Appreciate reccs Qualifiers: Aspiration pneumonia type: due to vomit Laterality: bilateral Lung location: unspecified part of lung Qualified Code(s): J69.0 - Pneumonitis due to inhalation of food and vomit (4) GI bleed Onset Date: 09/15/17 Current Visit: Yes Status: Acute Plan: GI bleeding with Acute blood loss anemia. Pt with black tarry stools and Hgb of 6 on presentation. -GI consulted. Reccs Appreciated -S/p EGD POD# 1. Consistent with Duodenitis and gastritis -IV protonix ggt -S/p Transfuse 2 units PRBC hgb improved to 9.3. 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 insulin use: without intermediate use Diabetes mellitus complication status: without complication Qualified Code(s): E11.9 - Type 2 diabetes mellitus without complications (7) CVA (cerebral vascular accident) Onset Date: 09/15/17 Current Visit: Yes Status: Chronic Qualifiers: CVA mechanism: unspecified Qualified Code(s): I63.9 - Cerebral infarction, unspecified (8) History of gastric ulcer Current Visit: Yes Status: Chronic Plan: h/o Of Gastric Ulcers in the past -S.P Banding Discharge Plan: [facility] Plan to discharge in: Greater than 2 days - Code Status/Comfort Care Code Status Assessed: Yes Critical Care: Yes (> 60mins) Time Spent Managing Pts Care (In Minutes): 60 (> 60 MIns)
[2017-09-17] MEDS ORDERED: D5 0.45 NS 500 ML IV SCH (12:00)
[2017-09-17] MEDS: VANCOMYCIN 1.25 GM in NA CHLORIDE 0.9% 250 ML IV SCH (20:46)
[2017-09-17] MEDS: GUANFACINE HCL 1 MG TAB PO SCH (20:48)
[2017-09-18] MEDS: PANTOPRAZOLE INJ 80 MG in NA CHLORIDE 0.9% 250 ML IV SCH ×3 (00:38→23:05)
[2017-09-18] MEDS: PIPER/TAZO/NS 3.375gm 3.375 GM/100 ML BAG IVPB SCH ×3 (05:00→22:49)
[2017-09-18 05:34] LABS: Absolute Lymphocytes (CBC) 0.4 K/uL (0.7-4.9); Absolute Monocytes 0.9 K/uL (0.1-1.3); Absolute Neutrophil 8.2 K/uL (1.8-8.0); Basophils % 0.3 % (0-1.3); Eosinophils % 0.1 % (0-4.4); Hematocrit 23.9 % (39.6-49.0); Lymphocytes % 4.4 % (15.3-44.8); MCV 71.5 fL (80-100); MPV 9.5 fL (7.6-11.3); RBC Red Blood Cell Count 3.34 M/uL (4.33-5.43)
[2017-09-18 05:51] LABS: Albumin 2.2 g/dL (3.4-5.0); Bilirubin Total 0.8 mg/dL (0.2-1.0); Protein, Total 5.3 g/dL (6.4-8.2)
[2017-09-18] MEDS: INSULIN -REGULAR HUMAN 50 UNIT/0.5 ML ML SQ SCH ×4 (06:00→18:00)
[2017-09-18] MEDS: CARVEDILOL 25 MG TAB PO SCH ×2 (07:21→21:00)
[2017-09-18] MEDS: ASPIRIN EC 81 MG TAB PO SCH (07:21)
--- NOTE | 2017-09-18 08:17 | RAD REPORT ---
EXAM DESCRIPTION: Olga Single View09/18/2017 6:43 am CLINICAL HISTORY: Shortness of breath COMPARISON: 09/17/2017 FINDINGS: Minimal improvement in the diffuse bilateral alveolar opacities has occurred Endotracheal and nasogastric tubes remain in place. IMPRESSION: Minimal improvement in bilateral pulmonary opacities probably represent pulmonary edema
[2017-09-18] MEDS: FERROUS SULFATE 325 MG TAB PO SCH ×2 (09:00→21:00)
[2017-09-18] MEDS ORDERED: FUROSEMIDE 20 MG/ 2ML VIAL IV SCH (09:00)
--- NOTE | 2017-09-18 12:21 | P.PN ---
Subjective Date of Service: 09/18/17 Primary Care Provider: Dr Sanford at the [place] Chief Complaint: Respiratory failure Pt seen and examined at bedside. Chart reviewed. Pt continues to be Intubated. Case DW with Pulmonology, GI and Cardiology at this time. Pt is having Black Tarry stools. 1 overnight and 2 yesterday. Failed breathing trial today. Awake today. family at bedside. Review of Systems General: As per HPI Physical Examination - Vital Signs Temperature: 97.2 F Blood Pressure: 95/80 Pulse: 91 Respirations: 24 Pulse Ox (%): 100 - Physical Exam General: Other (Intubated and awake ) HEENT: Atraumatic Neck: Supple, JVD not distended Respiratory: Normal air movement, Crackles/rales, Rhonchi/gurgles Cardiovascular: Regular rate/rhythm, Normal S1 S2 Gastrointestinal: Normal bowel sounds, No tenderness, Other (PEG tube and OG tube in place) Musculoskeletal: No tenderness Integumentary: No rashes Neurological: Abnormal affect Lymphatics: No axilla or inguinal lymphadenopathy - Studies Medications List Reviewed: Yes Assessment & Plan - Problems (Diagnosis) (1) Respiratory failure Current Visit: Yes Status: Acute Plan: Acute Respiratory Failure 2.2 to Hypoxia 2.2 to Aspiration PNA vs volume overload -Failed BIPAP and now Intubated. Failed trail this AM -Vent Protocol and wean as tolerated -Pulmonology consulted. Reccs Apprecaited Qualifiers: Chronicity: acute Respiratory failure complication: hypoxia Qualified Code(s): J96.01 - Acute respiratory failure with hypoxia (2) Septic shock Current Visit: Yes Status: Acute Plan: Septic shock requiring pressor. -Elevated LA and Pt was started on Levophed initially -Now off the pressor since 09/16/17 -Sputum culture + for Gram - rods -Most likely 2.2 to Aspiration PNA -IV vanc and zosyn for now (3) Aspiration pneumonia Current Visit: Yes Status: Acute Plan: Aspiration PNA BL -IV vanc and Zosyn -Sputum Culture + for Gram - rods -Pulmonology consulted. Appreciate reccs Qualifiers: Aspiration pneumonia type: due to vomit Laterality: bilateral Lung location: unspecified part of lung Qualified Code(s): J69.0 - Pneumonitis due to inhalation of food and vomit (4) GI bleed Onset Date: 09/15/17 Current Visit: Yes Status: Acute Plan: GI bleeding with Acute blood loss anemia. Pt with black tarry stools and Hgb of 6 on presentation. S/p Transfuse 2 units PRBC. Hgb today is 8.0 again -GI consulted. Reccs Appreciated -S/p EGD POD# 2. Consistent with Duodenitis and gastritis -IV protonix ggt -Hold anticoagulation -Still continues to have Black tarry stools. Qualifiers: GI bleed type/associated pathology: melena Qualified Code(s): K92.1 - Melena (5) HTN (hypertension) Onset Date: 09/15/17 Current Visit: Yes Status: Chronic Plan: Hold Home medication due to Hypotension now Qualifiers: Hypertension type: essential hypertension Qualified Code(s): I10 - Essential (primary) hypertension (6) Diabetes Onset Date: 09/15/17 Current Visit: Yes Status: Chronic Plan: ISS Qualifiers: Diabetes mellitus type: type 2 Diabetes mellitus dedicated intermodal truck driver insulin use: without dedicated intermodal truck driver use Diabetes mellitus complication status: without complication Qualified Code(s): E11.9 - Type 2 diabetes mellitus without complications (7) CVA (cerebral vascular accident) Onset Date: 09/15/17 Current Visit: Yes Status: Chronic Qualifiers: CVA mechanism: unspecified Qualified Code(s): I63.9 - Cerebral infarction, unspecified (8) History of gastric ulcer Current Visit: Yes Status: Chronic Plan: h/o Of Gastric Ulcers in the past -S.P Banding in the past Discharge Plan: [facility] Plan to discharge in: 72 Hours - Code Status/Comfort Care Code Status Assessed: Yes Critical Care: Yes (>45 mins)
[2017-09-18] MEDS ORDERED: NA CHLORIDE 0.9% 1,000 ML ONE ×2 (13:20→22:27)
[2017-09-18] MEDS: D5 0.45 NS 1,000 ML IV SCH (13:41)
[2017-09-18] MEDS ORDERED: NA CHLORIDE 0.9% 500 ML IV SCH (14:00)
[2017-09-18] MEDS: VANCOMYCIN 1.25 GM in NA CHLORIDE 0.9% 250 ML IV SCH (20:50)
[2017-09-18] MEDS: GUANFACINE HCL 1 MG TAB PO SCH (21:00)
--- NOTE | 2017-09-18 21:18 | RAD REPORT ---
EXAM DESCRIPTION: RAD - Chest Single View - 09/18/2017 9:08 pm CLINICAL HISTORY: Device placement PICC line placement COMPARISON: September 18 FINDINGS: A PICC line has been inserted with its tip in the distal superior vena cava. Minimal worsening in the extensive bilateral alveolar opacities has occurred Endotracheal and nasogastric tubes remain in place IMPRESSION: PICC line with its tip in the distal superior vena cava
[2017-09-18] MEDS ORDERED: NA CHLORIDE 0.9% 1,000 ML IV ONE ×2 (22:12→22:42)
[2017-09-18 22:36] LABS: Absolute Lymphocytes (CBC) 0.5 K/uL (0.7-4.9); Absolute Monocytes 0.4 K/uL (0.1-1.3); Absolute Neutrophil 7.3 K/uL (1.8-8.0); Basophils % 0.1 % (0-1.3); Eosinophils % 0.2 % (0-4.4); Hematocrit 21.9 % (39.6-49.0); Lymphocytes % 6.3 % (15.3-44.8); MCH 23.7 pg (27.0-35.0); MCV 71.3 fL (80-100); MPV 9.9 fL (7.6-11.3); Monocytes % 4.5 % (3.3-12.3); RBC Red Blood Cell Count 3.07 M/uL (4.33-5.43)
[2017-09-18 22:47] LABS: Albumin 1.9 g/dL (3.4-5.0); Bilirubin Total 0.6 mg/dL (0.2-1.0); Potassium 3.9 mmol/L (3.5-5.1)
[2017-09-18] MEDS ORDERED: ALBUMIN HUMAN 25% 100 ML IV ONE (23:36)
--- NOTE | 2017-09-19 00:52 | CON ---
Date of Consultation: 09/15/2017 Reason For Consultation: Melena, hemoglobin down to 6.0. History Of Present Illness: The patient is a 57-year-old male with history of hyper tension, diabetes, stroke with residual left hemiparesis, dementia, coronary artery disease, gastric ulcer, who presented to the emergency room from residential with melena. Hemoglobin initially was 5 .9 to 6.0. Noted to have black stools in the residential. There is no report of any hematochezia, hematemesis, coffee-ground emesis, hemoptysis, hematuria, dysuria, polydipsia, chest pain, shortness of breath, seizure, syncope. Past Medical History: Significant for diabetes, hypertension, stroke, coronary artery disease, gastr ic ulcer. Family History: Noncontributory as per chart review since the patient has severe dementia. Social History: No tobacco or alcohol. Lives in a residential "on his unit" that is what he says. Physical Examination: Vital Signs: The patient is afebrile. Vital signs stable. He is 5 feet 8 inches, 146 pounds, BMI 2 2.3 kg/m2. HEENT: Normocephalic, atraumatic. Anicteric. Pupils equal, round, and reactive to ligh t. Extraocular movements intact. Oropharynx is clear. Neck: Supple. No masses. Respirations: Diminished breath sounds in the bases. Cardiac: Regular rate and rhythm. No gallops or rubs. Abdomen: Positive bowel sounds. Soft, nontender, nondistended. No hepatosplenomegaly. Extremities: No clubbing, cyanosis, or edema. Neuro: He has some left hemiparesis and weakness there. Demented. Oriented only x1. There is alessandro re dementia, status post stroke. Laboratory Data: The patient has a white count of 4.8; hemoglobin of 7.4, 6.0 yesterday on the 1st. Hematocrit 22.0, MCV of 72, platelet count 225. Polys of 50%, lymphocytes 30%, monocytes 10%, eosin ophils 2%. PT is 12.1, INR 1.03, PTT 31.4. Sodium 143, potassium 4.3, chloride 113, bicarb 25, BUN 37, creatinine 1.6, glucose 80, calcium 8.9, phosphorus 3.1, magnesium 2.3, total bilirubin 0.4, AST 28, ALT 22, alkaline phosphatase 52, total protein 6.6, albumin 3.0. Troponin 1 less than 0.03. Lip ase normal at 264. Impression: 1.Melena with anemia, hemoglobin 6.0 with a history of peptic ulcer disease. 2.History of stroke with dysphagia and increased risk of aspiration. He is on PEG tube feedings as he has been on before admission to the hospital on this admission. Recommendation: 1.Proceed with EGD. 2.Serial H and Hs and transfuse p.r.n. 3.Continue PPI therapy. 4.Continue IV fluids. 5.Tube feeds after EGD. 6.Hold aspirin at this time. DIMITRY/DAVID Voice ID: [id number] Report ID: [id number]
[2017-09-19] MEDS: NOREPINEPHRINE 4 MG in D5W 250 ML IV PRN ×3 (01:42→17:45)
[2017-09-19] MEDS: PIPER/TAZO/NS 3.375gm 3.375 GM/100 ML BAG IVPB SCH ×3 (04:37→21:29)
[2017-09-19 05:52] LABS: Absolute Lymphocytes (CBC) 0.2 K/uL (0.7-4.9); Absolute Monocytes 0.3 K/uL (0.1-1.3); Absolute Neutrophil 5.9 K/uL (1.8-8.0); Basophils % 0.2 % (0-1.3); Eosinophils % 0.5 % (0-4.4); Hematocrit 22.9 % (39.6-49.0); Lymphocytes % 3.8 % (15.3-44.8); MCH 23.7 pg (27.0-35.0); MCV 71.8 fL (80-100); MPV 9.9 fL (7.6-11.3); Monocytes % 4.4 % (3.3-12.3); RBC Red Blood Cell Count 3.19 M/uL (4.33-5.43)
[2017-09-19 06:00] LABS: Albumin 2.2 g/dL (3.4-5.0); Bilirubin Total 0.7 mg/dL (0.2-1.0); Potassium 3.9 mmol/L (3.5-5.1); Protein, Total 5.2 g/dL (6.4-8.2)
[2017-09-19] MEDS: INSULIN -REGULAR HUMAN 50 UNIT/0.5 ML ML SQ SCH ×4 (06:00→17:59)
[2017-09-19 06:58] LABS: Platelet Estimate DECR
[2017-09-19 06:59] LABS: Anisocytosis 1+; Blood Morphology Comment NOTED (NOT SEEN); Burr Cells 1+; Hypochromasia 1+; Poikilocytosis 1+
[2017-09-19] MEDS: PANTOPRAZOLE INJ 80 MG in NA CHLORIDE 0.9% 250 ML IV SCH ×3 (07:00→17:45)
[2017-09-19] MEDS ORDERED: NA CHLORIDE 0.9% 250 ML ONE (07:31)
--- NOTE | 2017-09-19 07:57 | P.PN ---
Subjective Date of Service: 09/19/17 Called because patient was hypotensive. Also patient was found to be anemic once again. Started patient on on Levophed drip. Also given 2 units of packed red blood cell along with IV albumin. Continue monitoring closely at this time. Review of Systems is unable to be obtained Physical Examination - Vital Signs Temperature: 97.4 F Blood Pressure: 124/75 Pulse: 87 Respirations: 12 Pulse Ox (%): 96 - Physical Exam General: Other (Intubated and sedated) Respiratory: Diminished Cardiovascular: Regular rate/rhythm, Normal S1 S2, No murmurs Gastrointestinal: Soft and benign, Non-distended, No tenderness, No rebound, No guarding Musculoskeletal: No clubbing, No swelling Neurological: Normal gait - Studies Medications List Reviewed: Yes Assessment & Plan - Problems (Diagnosis) (1) Hypotensive episode Current Visit: Yes Status: Acute (2) GI bleed Current Visit: Yes Status: Acute (3) Anemia Current Visit: Yes Status: Acute - Plan Plan: 1. Start Levophed drip 2. Transfuse 2 units of packed red blood cells 3. Monitor closely hemodynamically 4. IV albumin 5. Bolus IV fluids as necessary Discharge Plan: Home Plan to discharge in: Greater than 2 days - Advance Directives Does patient have a Living Will: No Does patient have a Durable POA for Healthcare: No - Code Status/Comfort Care Code Status Assessed: Yes Code Status: Full Code Critical Care: No Time Spent Managing PTS Care (In Minutes): 40
--- NOTE | 2017-09-19 08:27 | P.PN ---
Subjective Date of Service: 09/19/17 Primary Care Provider: [facility] Chief Complaint: Respiratory failure Subjective: Worsening (Patient is unable to wean his x-rays worse developed ARDS from aspiration mildly anemic) Review of Systems is unable to be obtained Physical Examination - Vital Signs Temperature: 97.4 F Blood Pressure: 124/75 Pulse: 87 Respirations: 12 Pulse Ox (%): 96 - Physical Exam General: Alert Respiratory: Crackles/rales (Crackles bilaterally) Cardiovascular: No edema, Normal S1 S2 - Studies Medications List Reviewed: Yes Assessment & Plan - Problems (Diagnosis) (1) Respiratory failure Current Visit: Yes Status: Acute Plan: Patient has developed ARDS from aspiration also has renal insufficiency currently on Levophed which is being weaned off trial hydrocortisone continue with PEEP resume antral nutrition if NG lavage is negative sputum culture positive for E. coli continue with present medications Qualifiers: Chronicity: acute Respiratory failure complication: hypoxia Qualified Code(s): J96.01 - Acute respiratory failure with hypoxia
[2017-09-19] MEDS: CARVEDILOL 25 MG TAB PO SCH ×2 (09:00→21:00)
[2017-09-19] MEDS: FERROUS SULFATE 325 MG TAB PO SCH ×2 (09:25→21:00)
[2017-09-19] MEDS: WATER FOR INJ,STERILE 10 ML IV SCH ×2 (09:26→21:31)
[2017-09-19] MEDS: HYDROCORTISONE SUC 100 MG INJ IV SCH ×2 (09:26→21:31)
[2017-09-19] MEDS: D5 0.45 NS 1,000 ML IV SCH (09:27)
--- NOTE | 2017-09-19 09:35 | P.PN ---
Subjective Date of Service: 09/19/17 Primary Care Provider: Dr Sanford at the [facility] Chief Complaint: Respiratory failure Pt seen and examined at bedside. Chart reviewed. Pt continues to be Intubated. Case DW with Pulmonology, GI and Nephrology consulted today. Pt is developing ARDS and Sputum Culture is + for Ecoli. Low Urine output overnight and Restarted on Levophed today. Hgb trending down and pt still with dark tarry stools. Review of Systems General: As per HPI Physical Examination - Vital Signs Temperature: 97.4 F Blood Pressure: 124/75 Pulse: 87 Respirations: 12 Pulse Ox (%): 96 - Physical Exam General: Other (Intubated. ) HEENT: Atraumatic Neck: Supple, JVD not distended Respiratory: Clear to auscultation bilaterally, Normal air movement Cardiovascular: Regular rate/rhythm, Normal S1 S2 Gastrointestinal: Normal bowel sounds, Soft and benign, Non-distended, No tenderness, Other (Peg tube in place ) Musculoskeletal: No tenderness, Swelling Neurological: Other (Currently Intubated. ) Lymphatics: No axilla or inguinal lymphadenopathy - Studies Medications List Reviewed: Yes Assessment & Plan - Problems (Diagnosis) (1) Respiratory failure Current Visit: Yes Status: Acute Plan: Acute Respiratory Failure 2.2 to Hypoxia 2.2 to Aspiration PNA -Failed BIPAP and now Intubated. Failed trail this AM -Vent Protocol and wean as tolerated -Pulmonology consulted. Reccs Apprecaited -Pt now has developed ARDS due to Aspiration PNA. -High PEEP and low tidal Volume Qualifiers: Chronicity: acute Respiratory failure complication: hypoxia Qualified Code(s): J96.01 - Acute respiratory failure with hypoxia (2) Septic shock Current Visit: Yes Status: Acute Plan: Septic shock requiring pressor. -Now back on pressor for hypotension. -Sputum culture + for Ecoli -Most likely 2.2 to Aspiration PNA -IV vanc and zosyn for now (3) Aspiration pneumonia Current Visit: Yes Status: Acute Plan: Aspiration PNA BL -IV vanc and Zosyn -Sputum Culture + for Ecoli -Pulmonology consulted. Appreciate reccs Qualifiers: Aspiration pneumonia type: due to vomit Laterality: bilateral Lung location: unspecified part of lung Qualified Code(s): J69.0 - Pneumonitis due to inhalation of food and vomit (4) GI bleed Onset Date: 09/15/17 Current Visit: Yes Status: Acute Plan: GI bleeding with Acute blood loss anemia. Pt with black tarry stools and Hgb of 6 on presentation. Hgb today is 7.3. Still continues to have Black tarry stools. -GI consulted. Reccs Appreciated -S/p EGD POD# 3. Consistent with Duodenitis and gastritis -IV protonix ggt -Hold anticoagulation -Transfuse 2 PRBC today. Now total of 4 Qualifiers: GI bleed type/associated pathology: melena Qualified Code(s): K92.1 - Melena (5) HTN (hypertension) Onset Date: 09/15/17 Current Visit: Yes Status: Chronic Plan: Hold Home medication due to Hypotension now Qualifiers: Hypertension type: essential hypertension Qualified Code(s): I10 - Essential (primary) hypertension (6) Diabetes Onset Date: 09/15/17 Current Visit: Yes Status: Chronic Plan: ISS Qualifiers: Diabetes mellitus type: type 2 Diabetes mellitus usp insulin use: without technician terminal and repeater use Diabetes mellitus complication status: without complication Qualified Code(s): E11.9 - Type 2 diabetes mellitus without complications (7) CVA (cerebral vascular accident) Onset Date: 09/15/17 Current Visit: Yes Status: Chronic Qualifiers: CVA mechanism: unspecified Qualified Code(s): I63.9 - Cerebral infarction, unspecified (8) History of gastric ulcer Current Visit: Yes Status: Chronic Plan: h/o Of Gastric Ulcers in the past -S.P Banding in the past Discharge Plan: Other Plan to discharge in: Greater than 2 days - Code Status/Comfort Care Code Status Assessed: Yes Critical Care: Yes (>45mins)
[2017-09-19 13:54] LABS: Hematocrit 29.4 % (39.6-49.0)
[2017-09-19] MEDS ORDERED: NA CHLORIDE 0.9% 500 ML IV ONE (15:17)
[2017-09-19] MEDS ORDERED: FUROSEMIDE 40 MG/4 ML VIAL IV ONE (15:17)
[2017-09-19] MEDS: VANCOMYCIN 1.25 GM in NA CHLORIDE 0.9% 250 ML IV SCH (20:00)
[2017-09-19] MEDS: GUANFACINE HCL 1 MG TAB PO SCH (21:00)
[2017-09-19] MEDS: NA CHLORIDE 0.9% 1,000 ML IV SCH (21:30)
[2017-09-19 22:47] LABS: Uric Acid 4.9 mg/dL (3.5-7.2)
--- NOTE | 2017-09-20 01:02 | CON ---
Date of Consultation: 09/19/2017 Chief Complaint: Acute kidney injury, oliguric, associated with renal hypoperfusion. History Of Present Illness: The patient is on pressors. The patient has chronic kidney disease. Baseline creatinine level is 1.3. Over the last several days, creatinine has been rising up to 1.8. Over the last 24 hours, creatinine is 1.8, and urine output has declined since yesterday. The patient has multiple medical problems. He is intubated, remains in ICU. The patient was admitted to the hospital for GI bleeding. He developed sepsis and septic shock. He has a history of stroke. He is admitted for GI bleeding. He underwent EGD, was found to have gastritis. He developed respiratory distress, was intubated, and became hypotensive, and was transferred to ICU. Chest x-ray showed bilateral patchy infiltrates, possible aspiration. The patient currently is on ventilator. He is nonverbal, although he is moving extremity and is somewhat arousable. He is on pressors and IV fluids for blood pressure support. He has history of hypertension, coronary artery disease, and chronic kidney disease stage 3. Review of Systems: The patient cannot provide review of systems. He is intubated and remains in ICU. Past Medical History: Diabetes mellitus, hypertension, CVA, coronary artery disease, gastric ulcer, PEG. Social History: Negative for tobacco, alcohol, or illicit drugs. Family History: No kidney disease in the family. Physical Examination: General: The patient is intubated, ventilated. Eyes: Anicteric sclerae. No hemorrhagic changes. Ears, Nose, Mouth and Throat: Oral mucosa moist. No pallor. Neck: Supple. No bruits. Lungs: Clear to auscultation bilaterally. Heart: S1, S2. No pericardial friction rub. Abdomen: Soft, benign. No rebound, no guarding. Extremities: No edema. No clubbing. No cyanosis. Neurological: Moving extremities. No tremor. Laboratory Data: Sodium 142, potassium 4.0, chloride 116, CO2 of 17, BUN 35, creatinine is 1.7, glucose 126. Hemoglobin A1c is unobtainable. Calcium 7.8. CK level is 84, hemoglobin is 9.8, WBC 6.5, platelet count is 92,000. Chest x- ray showed bilateral pulmonary infiltrates, opacities present in both lungs. Impression And Plan: 1. Acute on chronic kidney injury. The patient has underlying chronic kidney disease stage 3, baseline creatinine 1.3. Creatinine level has risen up to 1.7. The patient will continue IV fluids for hydration, likely there is an element of prerenal azotemia, acute tubular necrosis. The patient will require pressors for blood pressure support to prevent renal hypoperfusion. 2. Urine output has been declining. IV normal saline rate was increased. Monitor urine output. Consider 1 dose of Lasix to prevent oliguria. 3. Anemia. Hemoglobin level improved to 9.8. 4. Pneumonia. The patient developed aspiration pneumonia. Continue treatment with antibiotics. 5. Hypotension, sepsis, septic shock. The patient is on pressor. He remains in ICU. 6. Diabetes mellitus. Continue insulin. 7. Monitor ABG when the patient is on vent. EB/MODL Voice ID: [id number] Report ID: [id number] MTDD
[2017-09-20] MEDS: PANTOPRAZOLE INJ 80 MG in NA CHLORIDE 0.9% 250 ML IV SCH (04:34)
[2017-09-20] MEDS: PIPER/TAZO/NS 3.375gm 3.375 GM/100 ML BAG IVPB SCH ×3 (04:35→19:57)
[2017-09-20 05:32] LABS: Albumin 1.9 g/dL (3.4-5.0); Phosphorus 2.1 mg/dL (2.5-4.9); Potassium 3.5 mmol/L (3.5-5.1); Protein, Total 4.9 g/dL (6.4-8.2)
[2017-09-20 05:35] LABS: Absolute Lymphocytes (CBC) 0.4 K/uL (0.7-4.9); Absolute Monocytes 0.2 K/uL (0.1-1.3); Absolute Neutrophil 7.2 K/uL (1.8-8.0); Basophils % 0.1 % (0-1.3); Eosinophils % 0.2 % (0-4.4); Hematocrit 26.4 % (39.6-49.0); Lymphocytes % 4.6 % (15.3-44.8); MCH 24.7 pg (27.0-35.0); MCV 73.3 fL (80-100); MPV 9.2 fL (7.6-11.3); Monocytes % 3.2 % (3.3-12.3)
[2017-09-20] MEDS: D5 0.45 NS 1,000 ML IV SCH (06:00)
[2017-09-20] MEDS: INSULIN -REGULAR HUMAN 50 UNIT/0.5 ML ML SQ SCH ×5 (06:00→23:41)
--- NOTE | 2017-09-20 08:57 | P.PN ---
Subjective Date of Service: 09/20/17 Primary Care Provider: Dr Sanford at the [facility] Chief Complaint: Respiratory failure Patient's condition is stable diagnosis ARDS currently on 30% oxygen PEEP of 10 patient is unresponsive Review of Systems is unable to be obtained Physical Examination - Vital Signs Temperature: 96.9 F Blood Pressure: 103/59 Pulse: 66 Respirations: 19 Pulse Ox (%): 100 - Physical Exam General: Unresponsive Respiratory: Clear to auscultation bilaterally Cardiovascular: No edema Gastrointestinal: Normal bowel sounds, Soft and benign - Studies Medications List Reviewed: Yes Assessment & Plan - Problems (Diagnosis) (1) Respiratory failure Current Visit: Yes Status: Acute Plan: Patient is 80 ER condition stable change to SIMV pressure support of 420 titrate sat to 90% continue with PEEP of 10 repeat sputum cultures chest x-ray still shows bilateral infiltrates white count is normal hemodynamically stable renal function is also stable ultrasound of the kidneys pending Qualifiers: Chronicity: acute Respiratory failure complication: hypoxia Qualified Code(s): J96.01 - Acute respiratory failure with hypoxia
--- NOTE | 2017-09-20 09:34 | RAD REPORT ---
EXAM DESCRIPTION: US - Renal Ultrasound-Complete - 09/20/2017 8:50 am CLINICAL HISTORY: arf Decreased urine output COMPARISON: No comparisons FINDINGS: Both kidneys are echogenic. The right kidney measures 11.3 x 5.4 x 4.6 cm. No hydronephrosis, focal mass or perinephric fluid. The left kidney measures 10.6 x 5.0 x 4.4 cm. No hydronephrosis, focal mass or perinephric fluid. Urinary bladder is decompressed by means of a Roberts catheter and incompletely assessed. IMPRESSION: Bilateral echogenic kidneys are present compatible with medical renal disease.
[2017-09-20] MEDS: CARVEDILOL 25 MG TAB PO SCH (10:46)
[2017-09-20] MEDS: FERROUS SULFATE 325 MG TAB PO SCH ×2 (10:46→19:58)
[2017-09-20] MEDS: HYDROCORTISONE SUC 100 MG INJ IV SCH ×2 (10:46→20:06)
[2017-09-20] MEDS: WATER FOR INJ,STERILE 10 ML IV SCH ×2 (10:47→20:06)
[2017-09-20] MEDS: PANTOPRAZOLE 40 MG INJ IVP SCH (10:48)
[2017-09-20] MEDS: NA CHLORIDE 0.9% 1,000 ML IV SCH (10:54)
[2017-09-20] MEDS ORDERED: KCL 20 MEQ/100 mL IVPB 20 MEQ/100 ML BAG IV SCH (12:00)
--- NOTE | 2017-09-20 12:23 | PN ---
Date of Progress Note: 09/20/2017 Subjective: The patient still on vent, oliguric. Objective: Vital Signs: Blood pressure 111/67, pulse of 59, afebrile. The patient had urine output on the last few hour of 350. Chest: Crackles bilateral. Heart: S1 and S2. Regular. Abdomen: Soft, nontender. Extremities: Trace edema. Laboratory Data: WBC is 7.8, H and H 8.9/26.4, platelets of 56. Sodium 43, potassium 3.5, bicarb 17 , BUN 48, creatinine 1.8 exactly the same as yesterday. GFR of 48, calcium 7.6, phosphorus 2.1, albu min 1.9. INR of 1. ABG; pH 7.32, CO2 of 32, O2 of 139, base access -8. Renal ultrasound showing 11 .3 x 10.6 echogenic both kidnies. Chest x-ray showing congestion bilateral, questionable of ARDS. Medications: Current medications the patient on its include: 1.Zosyn. 2.Albumin. 3.Ferrous sulfate. 4.Carvedilol 25. 5.Guaifenesin. 6.Lasix. 7.Pantoprazole. 8.Hydrocortisone 50 b.i.d. 9.IV fluid 70 per hour. Assessment And Plan: 1.Acute kidney injury secondary to toxic acute tubular necrosis, poor perfusion, acute tubular necro sis, oliguric, started to be on the wet side. I am going to start the patient on Lasix drip and we w ill monitor the patient. 2.Septic shock. Continue supportive treatment. We will monitor. 3.Pneumonia. Continue Zosyn dose appropriate. 4.Acidosis secondary to renal failure, septic shock. I doubt to be secondary to DKA given the uncon trolled blood sugar. I do not see any need for sodium bicarb for the time being. 5.Hypokalemia. Given the acute kidney injury, we will supplement cautiously. 6.Hypophosphatemia. I am going to be reluctant to give any supplement for the time being given the acute kidney injury. HUNTER/DAVID Voice ID: [id number] Report ID: [id number]
[2017-09-20] MEDS: ALBUMIN HUMAN 25% 50 ML IV ONE ×2 (13:40→13:41)
[2017-09-20] MEDS: ALBUMIN HUMAN 25% 12.5 GM, FUROSEMIDE 100 MG in NA CHLORIDE 0.9% 40 ML IV SCH ×2 (13:52→21:49)
[2017-09-20 14:19] LABS: Arterial Blood Carboxyhemoglob 1.8 % (0-1.5); Blood Gas Oxyhemoglobin 95.4 % (94-97); Blood O2 Saturation 97.6 % (92-98.5)
[2017-09-20] MEDS: FENTANYL CITR 100 MCG/2 ML IV PRN ×2 (15:00→21:53)
[2017-09-20 15:18] LABS: Urine Protein/Creatinine Ratio 1.03 ratio (<0.15)
[2017-09-20 15:26] LABS: UR MICROALBUMIN 13.7 mg/dL (< 1.9)
[2017-09-20] MEDS: FLUCONAZOLE 100 MG TAB FT SCH (18:17)
[2017-09-20] MEDS: NYSTATIN 500,000 UNIT/5 ML UDC PO SCH ×2 (18:17→20:06)
[2017-09-20] MEDS: GUANFACINE HCL 1 MG TAB PO SCH (20:06)
--- NOTE | 2017-09-20 20:57 | PN ---
Date of Progress Note: 09/20/2017 Subjective: The patient is seen and examined. Chart reviewed and case discussed with RN and Dr. Mac. The patient is somewhat responsive and does open eyes, not following commands. Review of Systems: Unable to be performed due to patient's medical condition. Medications: Reviewed. Physical Examination: Vital Signs: Temperature 96.9, heart rate 66, blood pressure 103/59, respirations 19, O2 100% on ET tube. General: Intubated, not sedated. Opens eyes to name. Does not follow any commands. CV: S1, S2. No murmurs. Peripheral pulses present. Respiratory: Mechanical breath sounds. No wheezing. No stridor. Gastrointestinal: Abdomen is soft, nontender, nondistended. Positive bowel sounds. Extremities: No clubbing, cyanosis, edema. Neuro: Intubated, not sedated. Opens eyes and will track, however, does not follow any commands. Laboratory Data: Sodium 143, potassium 3.5, chloride 114, CO2 17, BUN 48, creatinine 1.8, glucose 137, calcium 7.6, phosphorus 2.1. WBC 7.8, H and H 8.9 , 26.4, platelets 56, neutrophils 91%. Renal ultrasound does show bilateral echogenic kidneys, present compatible with medical renal disease. Assessment And Plan: A 57-year-old male with: 1. Acute respiratory failure secondary to hypoxia and aspiration pneumonia, in acute respiratory distress syndrome, not able to be weaned. Appreciate Dr. Mac's input. The patient now has acute respiratory distress syndrome. We will continue on ventilator. 2. Septic shock, requiring pressors. The patient has been off Levophed now for short amount of time. Sputum cultures are positive for E coli, likely secondary to aspiration pneumonia. We will continue IV antibiotics. 3. Aspiration pneumonia, bilateral. We will continue IV Zosyn. Sputum cultures growing E coli. Blood cultures, no growth to date. 4. Gastrointestinal bleed with acute blood loss anemia. The patient is having black tarry stools. The patient was transfused 2 units. GI has been consulted. EGD was done. Postop day #4, found to have duodenitis and gastritis. Continue Protonix IV. Hold anticoagulation. The patient has had a total of 4 PRBCs. 5. Essential hypertension, currently hypotensive. Medications on hold. 6. Diabetes mellitus type 2 with long-term use of insulin with hyperglycemia. 7. History of cerebrovascular accident. 8. History of gastric ulcer status post banding. 9. Gastrointestinal and deep venous thrombosis prophylaxis, PPI, SCDs. No chemical anticoagulation due to bleed. Spoke with case managers. The patient does not have LTAC benefits. We will continue to wean as tolerated. CONCEPCIÓN Voice ID: [id number] Report ID: [id number] PAYAL
[2017-09-21] MEDS: PIPER/TAZO/NS 3.375gm 3.375 GM/100 ML BAG IVPB SCH (04:38)
[2017-09-21] MEDS: GLUCERNA 1.5 CAL 1,000 ML BOT FT SCH ×2 (04:39→21:38)
[2017-09-21] MEDS: FENTANYL CITR 100 MCG/2 ML IV PRN ×2 (05:12→13:40)
[2017-09-21 05:59] LABS: Albumin 2.1 g/dL (3.4-5.0); Magnesium 2.4 mg/dL (1.8-2.4); Potassium 3.8 mmol/L (3.5-5.1); Protein, Total 5.5 g/dL (6.4-8.2)
[2017-09-21] MEDS: INSULIN -REGULAR HUMAN 50 UNIT/0.5 ML ML SQ SCH ×3 (06:00→18:00)
[2017-09-21 06:12] LABS: Absolute Lymphocytes (CBC) 0.4 K/uL (0.7-4.9); Absolute Monocytes 0.3 K/uL (0.1-1.3); Absolute Neutrophil 7.3 K/uL (1.8-8.0); Basophils % 0.2 % (0-1.3); Eosinophils % 0.4 % (0-4.4); Hematocrit 26.6 % (39.6-49.0); Lymphocytes % 5.2 % (15.3-44.8); MCH 24.8 pg (27.0-35.0); MCV 73.2 fL (80-100); MPV 9.2 fL (7.6-11.3); RBC Red Blood Cell Count 3.63 M/uL (4.33-5.43)
[2017-09-21 06:39] LABS: Anisocytosis 1+; Blood Morphology Comment NOTED (NOT SEEN); Burr Cells 1+; Hypochromasia 1+; Platelet Estimate DECR; Platelets, Giant FEW; Poikilocytosis 1+
[2017-09-21] MEDS: ALBUMIN HUMAN 25% 12.5 GM, FUROSEMIDE 100 MG in NA CHLORIDE 0.9% 40 ML IV SCH ×2 (08:11→18:00)
[2017-09-21] MEDS: HYDROCORTISONE SUC 100 MG INJ IV SCH ×2 (08:12→21:34)
[2017-09-21] MEDS: FLUCONAZOLE 100 MG TAB FT SCH ×2 (08:12→21:35)
[2017-09-21] MEDS: PANTOPRAZOLE 40 MG INJ IVP SCH ×2 (08:12→21:35)
[2017-09-21] MEDS: WATER FOR INJ,STERILE 10 ML IV SCH ×2 (08:12→21:35)
[2017-09-21] MEDS: NYSTATIN 500,000 UNIT/5 ML UDC PO SCH ×4 (08:12→21:34)
[2017-09-21] MEDS: SODIUM CHLORIDE 0.9% 10ML INJ IV PRN (08:14)
[2017-09-21] MEDS: LORazepam 2 MG/ML VIAL IV PRN ×2 (09:11→23:51)
[2017-09-21 09:29] LABS: Protime INR 1.18
--- NOTE | 2017-09-21 10:46 | RAD REPORT ---
EXAM DESCRIPTION: RAD - Chest Single View - 09/21/2017 10:37 am CLINICAL HISTORY: COPD Chest pain. COMPARISON: Chest Single View dated 09/18/2017; Chest Single View dated 09/18/2017; Chest Single View da trae 09/17/2017; Chest Single View dated 09/16/2017 FINDINGS: Portable technique limits examination quality. Bilateral pulmonary opacities are again noted, unchanged. These may represent pulmonary edema, pneumo santhosh or ARDS. The heart is mildly prominent. ET tube tip is above the lubna. Left-sided PICC line has tip in the SVC. Enteric tube descends in the stomach.
[2017-09-21] MEDS ORDERED: LIDOCAINE 1% 20 ML MDV IV ONE (12:04)
[2017-09-21] MEDS ORDERED: NA CHLORIDE 0.9% 250 ML ONE (12:43)
--- NOTE | 2017-09-21 14:52 | PN ---
Date of Progress Note: 09/21/2017 Subjective: The patient is seen and examined. Chart reviewed and case discussed with RN. The patie nt is still having decreased urinary output, able to track, however, not moving the left side. Review of Systems: Unable to be obtained due to the patient's medical condition. Medications: List reviewed. Physical Examination: Vital Signs: Temperature 97.9, heart rate 70, blood pressure 95/60, respirations 28, O2 is 90% on ET tube. General: Awake, alert, intubated, not sedated, does respond to name, slightly ill-appearing. CV: S1, S2. No murmurs. Peripheral pulses present. Respiratory: Diminished breath sounds throughout. Tachypneic. No wheezing. Gastrointestinal: Abdomen is soft, nontender, nondistended. Positive bowel sounds. No guarding or rigidity. Extremities: No clubbing, cyanosis, or edema. Neuro: The patient responds to name, opens eyes spontaneously, paralyzed on the right side from prev ious CVA. Does not follow commands. Does move right lower extremity. Laboratory Data: Sodium 143, potassium 3.8, chloride 115, CO2 16, BUN 59, creatinine 2.2, glucose 16 4, calcium 8, magnesium 2.4, albumin 2.1. WBC 8.1, H and H 9 and 26.6, platelets 41, neutrophils 90% , bands 8. Sputum culture shows E. coli. Blood cultures no growth to date. Assessment And Plan: A 57-year-old male with. 1.Acute respiratory failure with hypoxia secondary to aspiration pneumonia, acute respiratory distre ss syndrome, difficult to wean. Pulmonology on the case. We will continue on mechanical ventilation . 2.Septic shock requiring pressors, now off Levophed. Sputum culture is positive for E. coli seconda ry to aspiration pneumonia. Continue IV antibiotics. Follow up with blood cultures, negative to toi e. 3.Aspiration pneumonia, bilateral. Continue IV vancomycin and Zosyn. Sputum culture so far growing E coli. No growth on blood cultures. Needed to adjust IV antibiotics. 4.Acute respiratory distress syndrome. Continue mechanical ventilation. 5.Gastrointestinal bleed with black tarry stools. Has been transfused total of 4 units. EGD done b y Dr. Bill, postop day #5, found to have duodenitis and gastritis. 6.Acute blood loss anemia, status post 4 units PRBCs. We will continue to monitor H and H. 7.Acute kidney injury with decreased urinary output, currently on Lasix and albumin drip. Appreciat e Nephrology input. Continue to monitor closely maybe secondary to antibiotics versus septic shock, hypoperfusion secondary to hypo to septic shock. 8.Essential hypertension, currently hypotensive, now off pressors. 9.Diabetes mellitus type 2 with long-term use of insulin with hyperglycemia. Continue sliding scale insulin and Accu-Cheks. 10.History of cerebrovascular accident with a right-sided paralysis. 11.History of gastric ulcer status post banding. 12.Gastrointestinal and deep venous thrombosis prophylaxis with PPI and SCDs. No chemical anticoagu lation due to bleed. 13.Thrombocytopenia. We will check INR. No anticoagulation for now. 14.Overall, poor prognosis. We will discuss with family. Brother is the medical power of manager hospice. CONCEPCIÓN Voice ID: [id number] Report ID: [id number]
--- NOTE | 2017-09-21 14:52 | PN ---
Date of Progress Note: 09/21/2017 Subjective: The patient is still on vent, poor response. The patient weaned from the pressor yester day. Physical Examination: Vital Signs: When I saw the patient, blood pressure of 103/63, pulse of 70. Chest: Faint crackles bilateral base. Heart: S1, S2. Regular. Abdomen: Soft, nontender. Extremities: Trace edema. Laboratory Data: WBC 8, H and H 9/26.6, platelets 41 trending down. Sodium 143, potassium 3.8, bica rb 16, chloride 115, BUN 59, creatinine 2.2, calcium of 8, magnesium 2.4. Medications: Current medications the patient on its include: 1.Cefepime. 2.Fluconazole. 3.Nystatin. 4.Ferrous sulfate. 5.Pantoprazole. 6.Hydrocortisone 50 b.i.d. 7.Fentanyl. Diagnostic Data: Chest x-ray was done today wound showing cardiomegaly congestion with infiltration on the right base compared to the chest x-ray before, worsening infiltration. Assessment And Plan: 1.Acute kidney injury secondary to poor perfusion, ATN, oliguric, over volume. I am going to go ahe ad and arrange to initiate dialysis. If dialysis is going to be challenging the patient's marginal b lood pressure, we will follow up. 2.Hypertension, currently hypotension, off pressor. We will continue to monitor. 3.Congestive heart failure, fluid overload. We will arrange for the dialysis. 4.Cerebrovascular accident. Continue supportive treatment. 5.Respiratory failure secondary to pneumonia and pulmonary edema as above. 6.Non-anion gap metabolic acidosis secondary to renal failure. We will arrange for the dialysis. HUNTER/DAVID Voice ID: [id number] Report ID: [id number]
[2017-09-21] MEDS ORDERED: MANNITOL 25% 12.5 GM/50 ML VIAL IV PRN (16:08)
[2017-09-21] MEDS ORDERED: NA CHLORIDE 0.9% 1,000 ML IV PRN (16:08)
--- NOTE | 2017-09-21 16:13 | CON ---
Date of Consultation: 09/21/2017 Reason For Service: Renal failure. History Of Present Illness: This is a case of a 57-year-old patient, in the ICU for multiple medical conditions, found to have renal failure and they wanted to give him dialysis today, so they asked fo che an emergent hemodialysis catheter placement. Most of the information was obtained from the chart Valentina Read since the patient cannot give any information. He is on the ventilator. Past Medical History: Reviewed including gastrointestinal bleeding, anemia, thrombocytopenia, renal insufficiency, history of CVA, ventilatory dependant. Past Surgical History: Unknown. Family History: Noncontributory. Social Habits: Unknown. Review of Systems: Unable to be obtained. Physical Examination: General: The patient is awake, although does not follow any commands. The patient is ventilatory de pendant, on sedation. Neck: Supple. Chest: Clear. Abdomen: Soft and depressible. No distention. Extremities: Good capillary refill. Neuro: Nonresponsive. Laboratory Data: Blood work reviewed including, as seen the patient has thrombocytopenia. INR with normal limits. Assessment: This is a 57-year-old patient in need of emergent hemodialysis. I asked me to put a Hem oSplit hemodialysis catheter emergently in the ICU. The patient's family fully explained the benefit s, alternatives, and risks which include, but are not limited to infection, bleeding, damage to adjac ent structures, anesthesia complications, bleeding, hematomas, deep vein thrombosis, pulmonary emboli , NV, or even . Also understand this may not relieve any symptoms. He might need more than one surgical intervention. This is a temporary catheter. If he is continuing dialysis, he may need a f ormal tunneled catheter in OR. Right now, an emergent platelet transfusion is in process. HM/MODL Voice ID: [id number] Report ID: [id number]
--- NOTE | 2017-09-21 16:46 | OP ---
Date of Procedure: 09/21/2017 Surgeon: Elbert Castellon MD Preoperative Diagnosis: End-stage renal disease, on mechanical ventilation. Postoperative Diagnosis: End-stage renal disease, on mechanical ventilation. Procedure: Placement of a right emergent hemodialysis Norman catheter on the right femoral vein. Anesthesia: Sedation plus local anesthetic. Description Of Procedure: The patient was brought to the operating room and placed in supine positio n. A time-out was called. Right femoral area was prepped and draped in a sterile fashion. An 18-ga uge needle was placed in the right femoral vein on the first attempt. Dilators were placed carefully without resistance through the guidewire. Then after that, a Norman catheter was placed over the g uidewire and the guidewire was removed. Norman was secured in place with 2-0 nylon. Excellent back flow and inflow. The lines were flushed with heparinized saline. The patient tolerated the procedur e well. The patient will continue now with the care and the care of the ICU and the physician for re nal hemodialysis. ZAK/DAVID Voice ID: [id number] Report ID: [id number]
[2017-09-21] MEDS ORDERED: ALBUMIN HUMAN 25% 50 ML IV SCH (17:00)
[2017-09-21] MEDS ORDERED: Pharmacy Consult 1 EA XX PRN (19:12)
--- NOTE | 2017-09-21 19:17 | P.PN ---
Subjective Date of Service: 09/21/17 Primary Care Provider: Dr Sanford at the [facility] Chief Complaint: Respiratory failure Patient's condition is unchanged chest x-ray in no change Review of Systems is unable to be obtained Physical Examination - Vital Signs Temperature: 97.4 F Blood Pressure: 120/69 Pulse: 74 Respirations: 33 Pulse Ox (%): 100 - Physical Exam General: Unresponsive Neck: Supple Respiratory: Crackles/rales (Crackles on the right side) Cardiovascular: No edema - Studies Medications List Reviewed: Yes Assessment & Plan - Problems (Diagnosis) (1) Respiratory failure Current Visit: Yes Status: Acute Plan: Patient has ARDS I have added vancomycin chest x-ray shows infiltrates bilateral currently on a vent unable to wean FiO2 of 24% saturation satisfactory patient is also thrombocytopenic Dc heparin currently is on PEEP of 10 vital sign satisfactory white count normal sputum Gram stain pending prognosis poor Qualifiers: Chronicity: acute Respiratory failure complication: hypoxia Qualified Code(s): J96.01 - Acute respiratory failure with hypoxia
[2017-09-21] MEDS ORDERED: VANCOMYCIN 1.25 GM in NA CHLORIDE 0.9% 250 ML IV SCH (20:00)
[2017-09-21] MEDS: GUANFACINE HCL 1 MG TAB PO SCH (21:00)
[2017-09-21] MEDS ORDERED: CEFEPIME 2 GM in NA CHLORIDE 0.9% 100 ML IV SCH (21:00)
[2017-09-21] MEDS ORDERED: VANCOMYCIN 1 GM/250 ML BAG ONE (21:16)
[2017-09-21] MEDS ORDERED: VANCOMYCIN 500 MG/VIAL ONE (21:24)
[2017-09-21] MEDS: CEFEPIME/SWI 2gm 2 GM/20 ML SYR IV SCH (21:36)
[2017-09-22] MEDS: FENTANYL CITR 100 MCG/2 ML IV PRN ×2 (03:07→15:35)
[2017-09-22 05:07] LABS: Absolute Lymphocytes (CBC) 0.5 K/uL (0.7-4.9); Absolute Monocytes 0.5 K/uL (0.1-1.3); Basophils % 0.1 % (0-1.3); Eosinophils % 2.1 % (0-4.4); Hematocrit 24.4 % (39.6-49.0); Lymphocytes % 4.7 % (15.3-44.8); MCH 24.9 pg (27.0-35.0); MCV 72.5 fL (80-100); Monocytes % 4.9 % (3.3-12.3); RBC Red Blood Cell Count 3.36 M/uL (4.33-5.43)
[2017-09-22 05:18] LABS: Albumin 2.1 g/dL (3.4-5.0); Bilirubin Total 0.9 mg/dL (0.2-1.0); Potassium 3.6 mmol/L (3.5-5.1); Protein, Total 5.6 g/dL (6.4-8.2)
[2017-09-22] MEDS: INSULIN -REGULAR HUMAN 50 UNIT/0.5 ML ML SQ SCH ×4 (05:42→18:00)
[2017-09-22] MEDS ORDERED: VANCOMYCIN 500 MG in NA CHLORIDE 0.9% 100 ML IVPB SCH (08:30)
--- NOTE | 2017-09-22 08:42 | RAD REPORT ---
EXAM DESCRIPTION: RAD - Chest Single View - 09/22/2017 6:28 am CLINICAL HISTORY: Intubation, ARDS COMPARISON: September 21 TECHNIQUE: AP portable chest image was obtained 0616 hours . FINDINGS: Diffuse alveolar edema or infiltrate pattern with relative sparing of the right upper lobe . Parenchymal pattern is stable from the prior study. ET tube and NG tube remain in good position. PI CC line is still in place. No new tube or line. Heart size is upper normal. No measurable pleural eff usion and no pneumothorax. No gross bony abnormality seen. No acute aortic findings suspected. IMPRESSION: Extensive airspace opacification throughout both lung hutton. Pattern is stable from adi or day study. Tubes and lines are unchanged.
[2017-09-22] MEDS: FLUCONAZOLE 100 MG TAB FT SCH ×2 (09:56→20:43)
[2017-09-22] MEDS: HYDROCORTISONE SUC 100 MG INJ IV SCH ×2 (09:56→20:43)
[2017-09-22] MEDS: WATER FOR INJ,STERILE 10 ML IV SCH ×2 (09:56→20:43)
[2017-09-22] MEDS: NYSTATIN 500,000 UNIT/5 ML UDC PO SCH ×4 (09:57→20:42)
[2017-09-22] MEDS: PANTOPRAZOLE 40 MG INJ IVP SCH ×2 (09:57→20:42)
[2017-09-22] MEDS: SODIUM CHLORIDE 0.9% 10ML INJ IV PRN (09:57)
[2017-09-22] MEDS: CEFEPIME/SWI 2gm 2 GM/20 ML SYR IV SCH ×2 (09:58→20:42)
[2017-09-22] MEDS: LORazepam 2 MG/ML VIAL IV PRN ×2 (11:17→23:52)
--- NOTE | 2017-09-22 13:08 | P.PN ---
Subjective Date of Service: 09/22/17 Primary Care Provider: Dr Sanford at [facility] Chief Complaint: Respiratory failure No change unresponsive tachypneic on a ventilator chest x-ray she will shows bilateral infiltrates although his only on FiO2 of 24% with a peep of 10 rate is in the 30s Review of Systems is unable to be obtained Physical Examination - Vital Signs Temperature: 97.4 F Blood Pressure: 128/71 Pulse: 76 Respirations: 12 Pulse Ox (%): 99 - Physical Exam General: Comatose Respiratory: Clear to auscultation bilaterally Cardiovascular: No edema, Edema (1+ edema) Gastrointestinal: Normal bowel sounds, Soft and benign - Studies Medications List Reviewed: Yes Assessment & Plan - Problems (Diagnosis) (1) Respiratory failure Current Visit: Yes Status: Acute Plan: Patient is in ARDS will plan to change him over to assist-control mode reduce his peep to 5 cm is only requiring 24% oxygen the renal function is stable cultures are so far negative white count is also normal continue with present therapy Qualifiers: Chronicity: acute Respiratory failure complication: hypoxia Qualified Code(s): J96.01 - Acute respiratory failure with hypoxia
--- NOTE | 2017-09-22 14:21 | P.PN ---
Subjective Date of Service: 09/22/17 Primary Care Provider: Dr Sanford at [facility] Chief Complaint: Respiratory failure Subjective: Other (No significant change since yesterday. Patient intubated.) Physical Examination - Vital Signs Temperature: 97.4 F Blood Pressure: 128/71 Pulse: 76 Respirations: 12 Pulse Ox (%): 99 - Physical Exam General: Other (No physical response noted. Patient intubated) HEENT: Atraumatic Neck: Supple Respiratory: Crackles/rales (Bilateral) Cardiovascular: Normal pulses, Regular rate/rhythm Gastrointestinal: Normal bowel sounds, Soft and benign, Non-distended, No masses Neurological: Other (Patient intubated. Poor response to stimuli) - Studies Medications List Reviewed: Yes Assessment & Plan - Problems (Diagnosis) (1) History of CVA with residual deficit Current Visit: Yes Status: Chronic Plan: Patient with poor response. Family is considering withdrawal of care and hospice. (2) ARDS (adult respiratory distress syndrome) Current Visit: Yes Status: Acute Plan: No significant change. Pulmonology consulted. Patient continues to be on ventilator. Family is considering withdrawal of care and hospice. Await decision by family. (3) Anemia Current Visit: Yes Status: Acute Plan: Patient with recent GI bleed. Hemoglobin stable. (4) Aspiration pneumonia Current Visit: Yes Status: Acute Plan: Patient with aspiration pneumonia. Sputum culture positive for E coli. Continue antibiotic therapy. Continue as above. Qualifiers: Aspiration pneumonia type: due to vomit Laterality: bilateral Lung location: unspecified part of lung Qualified Code(s): J69.0 - Pneumonitis due to inhalation of food and vomit (5) GI bleed Onset Date: 09/15/17 Current Visit: Yes Status: Acute Plan: GI bleed stable. Continue monitor closely. Qualifiers: GI bleed type/associated pathology: melena Qualified Code(s): K92.1 - Melena (6) Hypotensive episode Current Visit: Yes Status: Acute Plan: Will monitor closely. Blood pressure improved. (7) Respiratory failure Current Visit: Yes Status: Acute Plan: Patient with ARDS. Continue as above. Qualifiers: Chronicity: acute Respiratory failure complication: hypoxia Qualified Code(s): J96.01 - Acute respiratory failure with hypoxia (8) Septic shock Current Visit: Yes Status: Acute Plan: Continue as above. (9) Diabetes Onset Date: 09/15/17 Current Visit: Yes Status: Chronic Plan: Will continue sliding scale. Qualifiers: Diabetes mellitus type: type 2 Diabetes mellitus halfway insulin use: without tank terminal gauger use Diabetes mellitus complication status: without complication Qualified Code(s): E11.9 - Type 2 diabetes mellitus without complications (10) HTN (hypertension) Onset Date: 09/15/17 Current Visit: Yes Status: Chronic Plan: Blood pressure improved. Qualifiers: Hypertension type: essential hypertension Qualified Code(s): I10 - Essential (primary) hypertension (11) Acute renal failure Current Visit: Yes Status: Acute Plan: Patient received dialysis yesterday. Improvement noted. If family decides with withdrawal of care and hospice then will hold dialysis. (12) Thrombocytopenia Current Visit: Yes Status: Acute Plan: Likely from sepsis. Will continue monitor closely. Discharge Plan: Home Plan to discharge in: Greater than 2 days Time Spent Managing Pts Care (In Minutes): 55
--- NOTE | 2017-09-22 14:35 | PN ---
Date of Progress Note: 09/22/2017 Subjective: The patient is still on vent, more comfortable today. Physical Examination: Vital Signs: When I saw the patient; blood pressure 128/71, pulse of 76, the patient off pressor. Chest: Crackles bilateral. Heart: S1, S2. Regular. Abdomen: Soft, nontender. Extremities: Trace edema. The patient is still on vent. Laboratory Data: WBC 10.2, H and H 8.4/24.4, platelets of 56. Sodium 143, potassium 3.6, bicarb 22, BUN 57, creatinine of 2, calcium of 8. Current Medications: The patient on its include: 1.Cefepime. 2.Fluconazole. 3.Vancomycin. 4.Ferrous sulfate. 5.Tylenol. 6.Lorazepam. 7.Zofran. 8.Insulin. Assessment And Plan: 1.Acute kidney injury secondary to poor perfusion and acute tubular necrosis. Still oliguric, over volume. Apparently, family started thinking about hospice care. I am going to go ahead and arrange to hold on the dialysis of today if the patient's family decides for hospice care. Otherwise, if the y decide to continue full care, we will arrange for the dialysis. The patient tolerated the dialysis yesterday. We managed to remove of 1100. We will try to ultrafiltrate for today at 2 kg and we haylie l follow up. 2.Hypertension, controlled, optimal. Continue current medications. Off blood pressure medication a s the patient just recovered. 3.Respiratory failure secondary to pneumonia. Continue current antibiotic dose appropriate. 4.Escherichia coli pneumonia as above. 5.Cerebrovascular accident. Continue supportive treatment. Case discussed with staff. Discussed w angella Sierra. Agreed on the plan. PHILIP Voice ID: [id number] Report ID: [id number]
[2017-09-22] MEDS: GUANFACINE HCL 1 MG TAB PO SCH (20:44)
[2017-09-22] MEDS: GLUCERNA 1.5 CAL 1,000 ML BOT FT SCH (20:46)
[2017-09-22] MEDS ORDERED: VANCOMYCIN 1.25 GM in NA CHLORIDE 0.9% 250 ML IV SCH (22:00)
[2017-09-23] MEDS: INSULIN -REGULAR HUMAN 50 UNIT/0.5 ML ML SQ SCH ×4 (00:23→18:26)
[2017-09-23 05:40] LABS: Absolute Lymphocytes (CBC) 0.5 K/uL (0.7-4.9); Absolute Monocytes 0.7 K/uL (0.1-1.3); Absolute Neutrophil 8.8 K/uL (1.8-8.0); Basophils % 0.1 % (0-1.3); Eosinophils % 0.1 % (0-4.4); Hematocrit 25.2 % (39.6-49.0); Lymphocytes % 4.8 % (15.3-44.8); MCH 24.4 pg (27.0-35.0); MCV 71.4 fL (80-100); MPV 9.2 fL (7.6-11.3); Monocytes % 7.2 % (3.3-12.3); RBC Red Blood Cell Count 3.53 M/uL (4.33-5.43)
[2017-09-23 05:56] LABS: Albumin 1.9 g/dL (3.4-5.0); Bilirubin Total 0.7 mg/dL (0.2-1.0); Potassium 4.1 mmol/L (3.5-5.1); Protein, Total 5.3 g/dL (6.4-8.2)
[2017-09-23 07:00] LABS: Platelet Estimate DECR
[2017-09-23 07:09] LABS: Anisocytosis 2+; Blood Morphology Comment NOTED (NOT SEEN); Hypochromasia 1+; Polychromasia 1+
[2017-09-23] MEDS ORDERED: VANCOMYCIN 1.25 GM in NA CHLORIDE 0.9% 250 ML IV SCH (10:00)
[2017-09-23] MEDS: NYSTATIN 500,000 UNIT/5 ML UDC PO SCH ×4 (10:41→21:26)
[2017-09-23] MEDS: CEFEPIME/SWI 2gm 2 GM/20 ML SYR IV SCH ×2 (10:42→21:26)
[2017-09-23] MEDS: PANTOPRAZOLE 40 MG INJ IVP SCH ×2 (10:43→21:27)
[2017-09-23] MEDS: WATER FOR INJ,STERILE 10 ML IV SCH ×2 (10:43→21:00)
[2017-09-23] MEDS: FLUCONAZOLE 100 MG TAB FT SCH ×2 (10:43→21:25)
[2017-09-23] MEDS: HYDROCORTISONE SUC 100 MG INJ IV SCH (10:43)
--- NOTE | 2017-09-23 11:55 | P.PN ---
Subjective Date of Service: 09/23/17 Primary Care Provider: Dr Sanford at [facility] Chief Complaint: Respiratory failure No change patient is unresponsive he is only on 24% FiO2 Review of Systems is unable to be obtained Physical Examination - Vital Signs Temperature: 98.8 F Blood Pressure: 135/70 Pulse: 102 Respirations: 24 Pulse Ox (%): 97 - Physical Exam General: Unresponsive Neck: Supple Respiratory: Clear to auscultation bilaterally Cardiovascular: Normal S1 S2, Edema - Studies Medications List Reviewed: Yes Assessment & Plan - Problems (Diagnosis) (1) Respiratory failure Current Visit: Yes Status: Acute Plan: Patient's condition is stable he is unresponsive blood pressure satisfactory cultures so far only E coli that was isolated in the sputum patient is thrombocytopenic mildly anemic heparin was discontinued renal function is improving his little hyperglycemic Dc hydrocortisone repeat chest x-ray weaning trial Qualifiers: Chronicity: acute Respiratory failure complication: hypoxia Qualified Code(s): J96.01 - Acute respiratory failure with hypoxia
--- NOTE | 2017-09-23 12:24 | PN ---
Date of Progress Note: 09/23/2017 Subjective: The patient seen and examined. Chart reviewed and case discussed with RN. The patient has decreased level of consciousness. Not responding as well as he did 2 days ago. Grimaces to pain. Not on any sedation. Brother whose only family that has been available, wishes to withdraw care. Waiting on sister to make her decision. No or children have been located. Review of Systems: Unable to obtain due to patient's medical condition. Medications: List reviewed. Physical Examination: Vital Signs: Temperature 98.8, heart rate 88, blood pressure 157/81, respirations 25, O2 98% on ET tube. General: Intubated, non sedated. Not responsive. Does grimace to painful stimuli. CV: S1, S2. Regular rate and rhythm. Peripheral pulses present. No murmurs. Respiratory: Mechanical breath sounds, tachypneic, some rales heard. Gastrointestinal: Abdomen is soft, nondistended. Hypoactive bowel sounds. Extremities: No clubbing, cyanosis, edema. Neuro: The patient is only responsive to painful stimuli. Does not open eyes. Does not move any extremities. Does have right-sided paralysis due to his previous CVA. Skin: The patient has stage I sacral ulcer and excoriated skin of lower extremities. Laboratory Data: Sodium 142, potassium 4.1, chloride 108, CO2 26, BUN 60, creatinine 1.8, glucose 225, calcium 8, total bilirubin 0.7, albumin 1.9. WBC 10, H and H 8.6 and 25.2, platelets 41, neutrophils 87%. Sputum culture shows E coli. Blood cultures, no growth final. Stool occult blood is negative. Assessment And Plan: A 57-year-old male with. 1. Acute respiratory failure with hypoxia on mechanical ventilation secondary to acute respiratory distress syndrome. 2. Acute respiratory distress syndrome. No changes. No improvement in the patient's condition. Pulmonology on board. Still ventilator dependent. 3. History of cerebrovascular accident with residual deficit. 4. Acute blood loss anemia, status post 4 units packed red blood cells. 5. Septic shock. Requiring pressors, now off Levophed. 6. Aspiration pneumonia, bilateral, on antibiotics. 7. Gastrointestinal bleed with black tarry stools, status post esophagogastroduodenoscopy, found to have duodenitis and gastritis. Continue PPI. 8. Acute kidney injury. Dialysis catheter has been placed by Dr. Castellon. Nephrology on board. Dialysis was done 2 days ago. We will continue to monitor closely. 9. Diabetes mellitus type 2 with long-term use of insulin with hyperglycemia. Continue sliding scale insulin. 10. Essential hypertension, currently hypotensive. 11. Acute cerebrovascular accident with right-sided paralysis. 12. History of gastric ulcer, status post banding. 13. Thrombocytopenia. 14. Gastrointestinal and deep venous thrombosis prophylaxis with PPI and SCDs. 15. Severe protein calorie malnutrition. No anticoagulation due to bleed and thrombocytopenia. Overall, the patient has a very poor prognosis. We will discuss with family. The patient's family considering withdrawal of care and hospice care. /DAVID Voice ID: [id number] Report ID: [id number] PAYAL
[2017-09-23] MEDS: GLUCERNA 1.5 CAL 1,000 ML BOT FT SCH (17:24)
[2017-09-23] MEDS: GUANFACINE HCL 1 MG TAB PO SCH (21:00)
[2017-09-24] MEDS: INSULIN -REGULAR HUMAN 50 UNIT/0.5 ML ML SQ SCH ×5 (02:21→23:51)
--- NOTE | 2017-09-24 04:04 | PN ---
Chief Complaint: Acute kidney injury. History Of Present Illness: Acute kidney injury, moderately severe, nonoliguric. The patient developed acute tubular necrosis. The patient was found to have E coli pneumonia and has history of CVA. Review of Systems: The patient is on vent, and review of system is unobtainable. Physical Examination: Lungs: Bilateral crackles. Heart: S1, S2. Abdomen: Soft, benign. Extremities: Trace edema. Laboratory Data: Blood work, sodium 142, potassium 4.1, chloride 108, CO2 26, BUN 60, creatinine 1.8, glucose 265, calcium 8.0. Impression And Plan: 1. Acute kidney injury. Monitor electrolytes closely. The patient was started on dialysis for acute kidney injury, and urine output has not improved and the patient remains oliguric. Advance dialysis to correct hyperazotemia , add ultrafiltration to treat fluid overload, adjust UF according to volemia atatus and bp , use mannitol for intradialytic hypotension control. 2. Hypertension, controlled. 3. Respiratory failure due to pneumonia. The patient is on vent and antibiotics. Continue treatment with antibiotics. Adjust antibiotic to renal function. I spent total 36 min including 26 min to coordinate care plan. JUSTIN/DAVID Voice ID: [id number] Report ID: [id number] PAYAL
[2017-09-24] MEDS: LORazepam 2 MG/ML VIAL IV PRN ×2 (04:30→13:07)
[2017-09-24 05:50] LABS: Absolute Lymphocytes (CBC) 1.1 K/uL (0.7-4.9); Absolute Neutrophil 7.6 K/uL (1.8-8.0); Basophils % 0.2 % (0-1.3); Hematocrit 25.9 % (39.6-49.0); Lymphocytes % 11.5 % (15.3-44.8); MCH 24.3 pg (27.0-35.0); MPV 9.6 fL (7.6-11.3); Monocytes % 10.2 % (3.3-12.3)
[2017-09-24 06:03] LABS: Albumin 1.8 g/dL (3.4-5.0); Bilirubin Total 0.6 mg/dL (0.2-1.0); Magnesium 2.4 mg/dL (1.8-2.4); Phosphorus 1.9 mg/dL (2.5-4.9); Potassium 4.2 mmol/L (3.5-5.1); Protein, Total 5.3 g/dL (6.4-8.2)
[2017-09-24] MEDS: WATER FOR INJ,STERILE 10 ML IV SCH ×2 (09:00→20:42)
[2017-09-24] MEDS: FLUCONAZOLE 100 MG TAB FT SCH ×2 (09:11→20:41)
[2017-09-24] MEDS: PANTOPRAZOLE 40 MG INJ IVP SCH ×2 (09:11→20:42)
[2017-09-24] MEDS: CEFEPIME/SWI 2gm 2 GM/20 ML SYR IV SCH ×2 (09:12→20:41)
[2017-09-24] MEDS: NYSTATIN 500,000 UNIT/5 ML UDC PO SCH ×4 (09:12→20:41)
--- NOTE | 2017-09-24 11:32 | RAD REPORT ---
EXAM DESCRIPTION: RAD - Chest Single View - 09/24/2017 6:06 am CLINICAL HISTORY: Respiratory failure pneumonia Chest pain. COMPARISON: Chest Single View dated 09/22/2017; Chest Single View dated 09/21/2017; Chest Single View da trae 09/18/2017; Chest Single View dated 09/18/2017 FINDINGS: Portable technique limits examination quality. Bilateral pulmonary opacities are again noted, showing little overall change since preceding study. F indings most likely indicate pulmonary edema, pneumonia or ARDS. Tip of the ET tube is above lubna. Enteric tube descends into the abdomen. Left-sided PICC line has tip in the SVC. No displaced fractur es. IMPRESSION: Stable chest since 09/22/2017.
[2017-09-24] MEDS ORDERED: POTASSIUM PHOS 10 MM in NA CHLORIDE 0.9% 250 ML IV ONE (12:00)
--- NOTE | 2017-09-24 13:19 | PN ---
Date of Progress Note: 09/24/2017 Subjective: The patient seen and examined. Chart reviewed and case discussed with RN. The patient's condition continues to be deteriorating, still largely unresponsive. Family including and 2 children are at the bedside. Treatment plan explained all, questions answered. Review of Systems: Unable to obtain due to the patient's medical condition. Medications: List reviewed. Physical Examination: Vital Signs: Temperature 99.3, heart rate 83, blood pressure 163/80, respirations 26, O2 99% on ET tube, FiO2 is 24%. General: Intubated, not sedated, nonresponsive. Does grimace to painful stimuli. CV: S1, S2. Regular rate and rhythm. Peripheral pulses are present. No murmurs. Respiratory: Diminished breath sounds. Some rales heard. The patient is tachypneic. Use of accessory muscles present. Gastrointestinal: Abdomen is soft, nondistended. Positive bowel sounds. No guarding or rigidity. Extremities: No clubbing, cyanosis. The patient has pedal edema. Neuro: Intubated, not sedated, nonresponsive except to painful stimuli. Does not open eyes. The patient does have weakness of the right side due to his previous stroke. Skin: Stage I sacral decubitus ulcer. Laboratory Data: Sodium 142, potassium 4.2, chloride 107, CO2 24, BUN 88, creatinine 2.2, glucose 275, calcium 8.1, phosphorus 1.9, albumin 1.8. WBC 9.7 , H and H 8.8, 25.9, platelets 34, neutrophils 78%. Chest x-ray, no official report personally reviewed, again shows extensive opacification in both lung hutton, worse on the right. Assessment And Plan: A 57-year-old male with: 1. Acute respiratory failure with hypoxia, on mechanical ventilation secondary to acute respiratory distress syndrome. 2. Acute respiratory distress syndrome. No significant improvement in patient 's condition. Chest x-ray seems to be about the same. Appreciate Dr. Mac' s input. 3. Acute metabolic encephalopathy 4. Septic shock, now off pressors. 5. Acute blood loss anemia, status post 4 units of PRBCs. 6. Thrombocytopenia. 7. Aspiration pneumonia, bilateral, on antibiotics. 8. Gastrointestinal bleed with melenic stools, status post esophagogastroduodenoscopy, has duodenitis and gastritis, currently on PPI. 9. Acute kidney injury. The patient now on dialysis, receiving dialysis today. Appreciate Nephrology input. 10. Diabetes mellitus type 2 with long-term use of insulin with hyperglycemia. 11. Essential hypertension. Blood pressure is improved. 12. History of cerebrovascular accident with right-sided paralysis. 13. History of gastric ulcer, status post banding. 14. Severe protein-calorie malnutrition. Albumin is 1.8. 15. GI/DVT prophylaxis with PPI and SCDs. No chemical anticoagulation due to thrombocytopenia and GI bleed. 16. History of cerebrovascular accident with residual deficit on the right side. Plan: Overall very poor prognosis. Had a long discussion with the family including the and the children, who are right at the bedside today. They will be considering further plan of treatment regarding withdrawal of care versus tracheostomy and placement to SNF as the patient does not have any LTAC benefit. /DAVID Voice ID: [id number] Report ID: [id number] PAYAL
--- NOTE | 2017-09-24 13:55 | PN ---
Date of Progress Note: 09/24/2017 Chief Complaint: Acute kidney injury. History Of Present Illness: Acute kidney injury, severe, oliguric. Renal function has not improved. The patient is dialysis dependent. The patient will resume dialysis today. The patient developed acute tubular necrosis in setting of multiorgan failure and E coli pneumonia. He has history of CVA. He remains intubated. Review of Systems: Unobtainable. The patient is encephalopathic and is on ventilator. Physical Examination: Lungs: Bilateral crackles at bases. Heart: S1, S2. Abdomen: Soft, benign. Extremities: Edema present in lower extremities. Laboratory Data: Hemoglobin 8.8, WBC 9.7, platelet count is 34,000. Chemistry showed sodium 142, potassium 4.2, chloride 107, CO2 24, BUN 88, creatinine 2.20 , glucose 275. Impression And Plan: 1. Acute kidney injury. Dialysis is scheduled for today. 2. Hypophosphatemia. Phosphorus level is 1.9, continue phosphorus replacement. 3. Thrombocytopenia, etiology likely secondary to sepsis. Plan: 1. Check heparin-induced thrombocytopenia panel and LDH. Monitor platelet count and consider platelet transfusion. Currently, the patient is asymptomatic. 2. Overall prognosis is poor. Family is considering hospice status and family meeting will be held by primary team today. Plan is to continue dialysis today and address further treatment plan according to family plan and wishes. I spent total 36 min including 25 min to coordinate care plan. JUSTIN/DAVID Voice ID: [id number] Report ID: [id number] PAYAL
[2017-09-24] MEDS: CARVEDILOL 12.5 MG TAB PO SCH (18:18)
[2017-09-24] MEDS: GUANFACINE HCL 1 MG TAB PO SCH (20:41)
[2017-09-25] MEDS: FENTANYL CITR 100 MCG/2 ML IV PRN ×3 (03:47→20:45)
[2017-09-25 05:49] LABS: Absolute Lymphocytes (CBC) 1.2 K/uL (0.7-4.9); Absolute Monocytes 0.7 K/uL (0.1-1.3); Absolute Neutrophil 5.9 K/uL (1.8-8.0); Basophils % 0.2 % (0-1.3); Hematocrit 24.3 % (39.6-49.0); Lymphocytes % 15.4 % (15.3-44.8); MCH 24.4 pg (27.0-35.0); MCV 72.4 fL (80-100); MPV 9.1 fL (7.6-11.3); Monocytes % 8.9 % (3.3-12.3); RBC Red Blood Cell Count 3.36 M/uL (4.33-5.43)
[2017-09-25 05:58] LABS: Albumin 1.5 g/dL (3.4-5.0); Bilirubin Total 0.6 mg/dL (0.2-1.0); Magnesium 2.2 mg/dL (1.8-2.4); Phosphorus 2.5 mg/dL (2.5-4.9); Potassium 4.3 mmol/L (3.5-5.1); Protein, Total 5.1 g/dL (6.4-8.2)
[2017-09-25] MEDS: INSULIN -REGULAR HUMAN 50 UNIT/0.5 ML ML SQ SCH ×4 (06:00→23:38)
[2017-09-25] MEDS: CARVEDILOL 12.5 MG TAB PO SCH ×2 (06:35→18:11)
--- NOTE | 2017-09-25 07:21 | RAD REPORT ---
EXAM DESCRIPTION: RAD - Chest Single View - 09/25/2017 6:12 am CLINICAL HISTORY: Respiratory failure, pneumonia COMPARISON: September 24 TECHNIQUE: AP portable chest image was obtained [id number] hours . FINDINGS: Endotracheal tube, ET tube and PICC line remain in place. Airspace opacification in the le ft lung field and lower right lung field have not changed. No cavitation has developed. No measurable improvement or progression of the lung parenchymal pattern. Heart and vasculature are normal. No jonathon surable pleural effusion and no pneumothorax. No gross bony abnormality seen. No acute aortic finding s suspected. IMPRESSION: Extensive bilateral airspace disease not significantly different from September 24 study. Tubes and lines are in good position.
[2017-09-25] MEDS: FLUCONAZOLE 100 MG TAB FT SCH (08:15)
[2017-09-25] MEDS: NYSTATIN 500,000 UNIT/5 ML UDC PO SCH ×4 (08:15→20:44)
[2017-09-25] MEDS: CEFEPIME/SWI 2gm 2 GM/20 ML SYR IV SCH ×2 (08:15→20:43)
[2017-09-25] MEDS: SODIUM CHLORIDE 0.9% 10ML INJ IV PRN (08:16)
[2017-09-25] MEDS: PANTOPRAZOLE 40 MG INJ IVP SCH ×2 (08:16→20:44)
[2017-09-25] MEDS: WATER FOR INJ,STERILE 10 ML IV SCH ×2 (08:16→20:44)
[2017-09-25 09:25] LABS: Platelet Estimate DECR
[2017-09-25 09:26] LABS: Anisocytosis 1+; Blood Morphology Comment NOTED (NOT SEEN); Hypochromasia 2+
--- NOTE | 2017-09-25 11:25 | PN ---
Date of Progress Note: 09/25/2017 Subjective: The patient is seen and examined. Chart reviewed and case discussed with RN. No family at the bedside. The patient more alert, opens eyes to name. Had dialysis yesterday. No acute even ts overnight. Review of Systems: Unable to obtain due to the patient's medical condition. Medications: List reviewed. Physical Examination: Vital Signs: Temperature 98.8, heart rate 76, blood pressure 164/69, respirations 15, O2 100% on 50% FiO2 via ET tube. General: Asleep, but arousable. Intubated, not sedated. Ill-appearing male. CV: S1, S2. Regular rate and rhythm. Peripheral pulses present. Respiratory: Diminished breath sounds throughout. No wheezing. No stridor. No use of accessory mu scles. Gastrointestinal: Abdomen is soft, nontender, nondistended. Positive bowel sounds. PEG tube in oanh ce. Extremities: No clubbing, cyanosis. The patient does have pedal edema. Neuro: The patient awakens to name, opens eyes, does not move his left side. Right side is flaccid from previous stroke. Intubated. Skin: The patient has stage I sacral ulcer. Laboratory Data: Sodium 142, potassium 4.3, chloride 107, CO2 28, BUN 68, creatinine is 1.7, glucose 186, calcium 8.1, phosphorus 2.5, magnesium 2.2. AST 51, ALT 21, alkaline phosphatase 163, albumin 1.5. WBC 7.9, H and H 8.2 and 24.3, platelets 30, neutrophils 74%, bands 5. Urine culture shows E. coli. Blood cultures negative. Sputum culture repeat shows normal quantity of respiratory amilcar. C hest x-ray personally reviewed, shows extensive bilateral airspace disease, not significantly differe nt from September 24 study. Tubes and lines are in good position. Assessment And Plan: A 57-year-old male with: 1.Acute respiratory failure with hypoxia, on mechanical ventilation, FiO2 up to 50%, secondary to ac [place] respiratory distress syndrome. 2.Acute respiratory distress syndrome. Chest x-ray did not show any improvement. Still requiring m echanical ventilation. Pulmonology consulted. 3.Acute metabolic encephalopathy. The patient's mental status is improved, now opens eyes to name. Still not following commands. 4.Septic shock, improved, now off pressors. 5.Acute blood loss anemia status post 4 units PRBCs. No further bleeding. 6.Thrombocytopenia, likely secondary to sepsis. 7.Aspiration pneumonia, bilateral. We will continue antibiotics. Sputum cultures growing Escherich ia coli. 8.Gastrointestinal bleed with melenic stool, status post EGD, found to have duodenitis and gastritis . We will continue PPI. 9.Acute kidney injury. Creatinine slightly improved on dialysis. We will continue to monitor creat inine level. Nephrology on board. 10.Diabetes mellitus type 2 with long-term use of insulin with hyperglycemia. Continue sliding scal e insulin. 11.Essential hypertension. Blood pressure more stable now. Previously was hypotensive. 12.History of cerebrovascular accident with right-sided paralysis. 13.History of gastric ulcers. Continue PPI. 14.Severe protein-calorie malnutrition. Albumin 1.5. We will continue with supplements. 15.Gastrointestinal and deep venous thrombosis prophylaxis with PPI and SCDs. No chemical anticoagu lation due to thrombocytopenia and gastrointestinal bleed. Plan: Awaiting family decision to either withdraw care or proceed with long-term placement with trac heostomy. If they decide for continuing active care, we will need to contact ENT and schedule trache ostomy. This is day 9 on ventilator. Overall, prognosis is very poor and low quality of life. /MODL Voice ID: [id number] Report ID: [id number]
[2017-09-25] MEDS: GUANFACINE HCL 1 MG TAB PO SCH (20:43)
--- NOTE | 2017-09-25 23:40 | PN ---
Date of Progress Note: 09/25/2017 Chief Complaint: Acute kidney injury. Subjective: Acute kidney injury, nonoliguric, associated with multiorgan failure. The patient has nonoliguric ATN. The patient has been treated with dialysis. There is persistent azotemia. Creatinine level is somewhat improved to 1.7, although BUN is 68. Urine output improved slightly, the patient although primarily had nonoliguric urine output. Currently, urine output is up to 750 per shift. Review of Systems: Unobtainable. The patient is lethargic, encephalopathic, and intubated. Review of systems cannot be obtained. Objective: Lungs: Few crackles at bases. Heart: S1, S2. Abdomen: Soft, benign. Extremities: No edema. Laboratory Data: Sodium 142, potassium 4.3, chloride 107, CO2 of 28, BUN 68, creatinine 1.7, glucose 186, phosphorus is 2.5, calcium 8.1. Impression And Plan: 1. Acute kidney injury, nonoliguric, severe. Monitor electrolytes closely and check daily fluid balance and urine output. Dialysis will be scheduled for tomorrow. Monitor electrolytes. Adjust dialysis according to electrolyte panel. 2. Hypophosphatemia. Replacement was ordered and monitor phosphorus level. 3. Heparin-induced thrombocytopenia panel and LDH is pending. Overall prognosis is poor. The patient's family is considering hospice. The patient remains very lethargic, encephalopathic, and he has recent stroke. I spent total 36 min including 26 min to coordinate care plan. JUSTIN/DAVID Voice ID: [id number] Report ID: [id number] PAYAL
[2017-09-26] MEDS: FENTANYL CITR 100 MCG/2 ML IV PRN (03:09)
[2017-09-26] MEDS: CARVEDILOL 12.5 MG TAB PO SCH ×2 (05:09→18:18)
[2017-09-26] MEDS: INSULIN -REGULAR HUMAN 50 UNIT/0.5 ML ML SQ SCH ×4 (05:11→18:19)
[2017-09-26 05:27] LABS: Absolute Monocytes 0.6 K/uL (0.1-1.3); Absolute Neutrophil 6.3 K/uL (1.8-8.0); Basophils % 0.3 % (0-1.3); Eosinophils % 1.3 % (0-4.4); Hematocrit 22.1 % (39.6-49.0); MCH 25.3 pg (27.0-35.0); MCV 71.7 fL (80-100); MPV 10.6 fL (7.6-11.3); Monocytes % 7.8 % (3.3-12.3); RBC Red Blood Cell Count 3.09 M/uL (4.33-5.43)
[2017-09-26 05:48] LABS: Albumin 1.5 g/dL (3.4-5.0); Bilirubin Total 0.5 mg/dL (0.2-1.0); Magnesium 2.2 mg/dL (1.8-2.4); Potassium 4.4 mmol/L (3.5-5.1); Protein, Total 4.8 g/dL (6.4-8.2)
--- NOTE | 2017-09-26 08:08 | RAD REPORT ---
EXAM DESCRIPTION: [facility] Single View09/26/2017 6:31 am CLINICAL HISTORY: Shortness of breath COMPARISON: September 25 FINDINGS: No significant change has occurred in the bilateral alveolar lung opacities. The heart re vern enlarged. Lines and tubes are in good position IMPRESSION: No significant change in bilateral alveolar opacities since the prior exam
[2017-09-26] MEDS: CEFEPIME/SWI 2gm 2 GM/20 ML SYR IV SCH (08:56)
[2017-09-26] MEDS: SODIUM CHLORIDE 0.9% 10ML INJ IV PRN (08:57)
[2017-09-26] MEDS: PANTOPRAZOLE 40 MG INJ IVP SCH (08:57)
[2017-09-26] MEDS: NYSTATIN 500,000 UNIT/5 ML UDC PO SCH ×4 (08:57→22:45)
[2017-09-26] MEDS: LORazepam 2 MG/ML VIAL IV PRN ×2 (09:27→18:18)
--- NOTE | 2017-09-26 11:19 | RAD REPORT ---
EXAM DESCRIPTION: - UPPER EXTREMITY VENOUS UNILATE - 09/26/2017 11:08 am CLINICAL HISTORY: Left arm pain and swelling, left subclavian central line COMPARISON: None. TECHNIQUE: Real-time sonographic evaluation of the left upper extremity deep venous systems was perf ormed. FINDINGS: Echogenic material is present partially filling the mid and distal left subclavian vein. T here is incomplete compression. Echogenic material fills the left axillary vein with no compression. Doppler evaluation shows partial flow within the subclavian vein. A minimal amount of flow is seen in the axillary. Brachial vein is clear. No basilic thrombus seen. In the superficial cephalic vein there is echogenic material and lack of compression in the distal aspect. Mixed echogenic and hypoechoic material is present. This is likely a mixture of acute and subacute to chronic thrombus. IMPRESSION: DVT is present in the left subclavian and left axillary deep veins. There is thrombus in the superficial cephalic vein. Echogenicity is variable and this is probably a mixture of acute thrombus and subacute/chronic thromb us.
--- NOTE | 2017-09-26 11:45 | P.PN ---
Subjective Date of Service: 09/26/17 Primary Care Provider: Dr Sanford at the [facility] Chief Complaint: Respiratory failure Patient is improving more responsive Review of Systems is unable to be obtained Physical Examination - Vital Signs Temperature: 98.2 F Blood Pressure: 146/64 Pulse: 80 Respirations: 15 Pulse Ox (%): 100 - Physical Exam General: Other (Opens eyes to deep pain stimulation) Neck: Supple Respiratory: Clear to auscultation bilaterally Cardiovascular: Regular rate/rhythm, Edema - Studies Medications List Reviewed: Yes Assessment & Plan - Problems (Diagnosis) (1) Respiratory failure Current Visit: Yes Status: Acute Plan: Patient has ARDS chest x-ray no change will try to wean him off family members to consider withdrawal of care renal function is worse patient is anemic thrombocytopenic and has a DVT in his AF is PICC line blood sugars are still elevated patient is currently on cefepime patient was on heparin flushes which was stopped and vancomycin was also Dc need as a cause for thrombocytopenia will tried weaning trial today Qualifiers: Chronicity: acute Respiratory failure complication: hypoxia Qualified Code(s): J96.01 - Acute respiratory failure with hypoxia
--- NOTE | 2017-09-26 13:18 | PN ---
Date of Progress Note: 09/26/2017 Subjective: The patient seen and examined. Chart reviewed and case discussed with RN. The patient much more alert. No acute events overnight. Having some excoriation of his skin around the sacrum. Review of Systems: Unable to obtain due to the patient's medical condition. Medications: List reviewed. Physical Examination: Vital Signs: Temp 98.2, heart rate 74, blood pressure 158/67, respirations 15, O2 of 99%, on ET tube , 40% FiO2. General: Intubated, non-sedated. Opens eyes to name. He does not follow any commands. CV: S1, S2. Peripheral pulses present. Regular rate and rhythm. No murmurs. Respiratory: Diminished breath sounds. No wheezing or stridor. Gastrointestinal: Abdomen is soft, nontender, nondistended. Positive bowel sounds. PEG tube in oanh ce. Extremities: No clubbing, cyanosis. Trace pedal edema. Neuro: Intubated, non-sedated, opens eyes to name. Does not follow any commands. Has right-sided p aralysis. Skin: The patient has a sacral ulcer. Laboratory Data: Sodium 142, potassium 4.4, chloride 107, CO2 of 26, BUN 76, creatinine 1.8, glucose 228, calcium 8.2, phosphorus 3, magnesium 2.2, albumin 1.5. WBC 8.1, H and H are 7.8 and 22.1, plat elets 29, neutrophils 78%. Blood cultures, no growth to date. Sputum culture, growing E. coli. C. diff assay is pending. Chest x-ray personally reviewed, shows no significant change in bilateral salma eolar opacities since previous exam. Lines and tubes in good place. Assessment And Plan: A 57-year-old male with: 1.Acute respiratory failure with hypoxia, on mechanical ventilation. Wean as tolerated. The patien t will need tracheostomy. Family wishes to continue with active care. 2.Acute respiratory distress syndrome. Serial chest x-rays are not showing any improvement. Still on mechanical ventilation. Dr. Mac on board. 3.Acute metabolic encephalopathy, resolving. The patient seems to be back to his baseline. 4.Septic shock, resolved, off pressors. Blood pressure is stable. 5.Acute blood loss anemia, status post 4 units of PRBCs. Hemoglobin decreased slightly this morning . We will recheck in the afternoon. 6.Gastrointestinal bleed with melenic stools, status post EGD, had duodenitis and gastritis. 7.Thrombocytopenia, likely related to sepsis. We will recheck level that continues to drop. May ed Hematology evaluation. Possible disseminated intravascular coagulation. 8.Aspiration pneumonia, bilateral. Continue antibiotics. Culture growing Escherichia coli. 9.Sacral decubitus ulcer. Continue wound care. May need DuoDerm. 10.Diarrhea. We will rule out Clostridium difficile. 11.Acute kidney injury. Creatinine improved. Continue dialysis as per Nephrology. We will continu e to monitor closely. 12.Diabetes mellitus type 2 with long-term use of insulin with hyperglycemia. Continue sliding scal e. Monitor Accu-Cheks. 13.Essential hypertension, stable. 14.History of cerebrovascular accident with right-sided paralysis. 15.History of gastric ulcers. Continue PPI. 16.Severe protein-calorie malnutrition. Albumin 1.5. 17.Gastrointestinal and deep venous thrombosis prophylaxis with PPI and SCDs. No chemical anticoagu lation due to severe thrombocytopenia and gastrointestinal bleed. Plan: Family was discussing further options, appears of the brother and sister wish, the patient to be on hospice care; however, is the final decision maker as they are still legally . Son is also involved and awaiting decision. We will reach out to ENT for possible tracheostomy. Tolu l, prognosis is poor. /DAVID Voice ID: [id number] Report ID: [id number]
[2017-09-26 13:20] LABS: MPV 10.6 fL (7.6-11.3)
[2017-09-26 16:03] LABS: Platelet Estimate DECR
[2017-09-27] MEDS: GUANFACINE HCL 1 MG TAB PO SCH ×2 (00:37→21:00)
[2017-09-27] MEDS: PANTOPRAZOLE 40 MG INJ IVP SCH ×3 (00:37→21:44)
[2017-09-27] MEDS: CEFEPIME/SWI 2gm 2 GM/20 ML SYR IV SCH ×3 (00:38→21:44)
[2017-09-27] MEDS: INSULIN -REGULAR HUMAN 50 UNIT/0.5 ML ML SQ SCH ×6 (00:40→23:43)
[2017-09-27] MEDS: FENTANYL CITR 100 MCG/2 ML IV PRN ×2 (00:41→05:11)
--- NOTE | 2017-09-27 01:57 | PN ---
Date of Progress Note: 09/26/2017 Chief Complaint: Acute kidney injury. Subjective: The patient has multiple medical problems. He remains in ICU. He has aspiration pneumo santhosh, multiorgan failure. He has nonoliguric urine output, although azotemia has not improved. The p atient is to have dialysis today. Review of Systems: Unobtainable. The patient is lethargic and encephalopathic. He is intubated and ventilated. Cannot provide review of systems. Physical Examination: Lungs: Crackles at bases. Heart: S1 and S2. Abdomen: Soft and benign. Extremities: Minimal edema present. Laboratory Data: Hemoglobin 7.8, WBC 8.1, platelet count is 29,000. Sodium 142, potassium 4.4, chlo ride 107, CO2 26, BUN 76, creatinine 1.80, glucose 228, phosphorus 3.0, calcium 8.2. Impression And Plan: 1.Tkfxk-am-zibwcdz kidney injury, nonoliguric urine output. The patient will have dialysis today. Family wants to continue dialysis. 2.Anemia. The patient may benefit from Hematology consultation. 3.The patient has thrombocytopenia, was found to have deep venous thrombosis. Recommended to check heparin-induced thrombocytopenia panel and LDH. 4.Overall prognosis is poor. The patient is very lethargic and encephalopathic, has a stroke and se psis. EB/MODL Voice ID: [id number] Report ID: [id number]
[2017-09-27] MEDS: GLUCERNA 1.5 CAL 1,000 ML BOT FT SCH (02:16)
[2017-09-27 02:37] LABS: HBsAG Nonreactive (Nonreactive)
[2017-09-27] MEDS: CARVEDILOL 12.5 MG TAB PO SCH ×3 (05:09→18:41)
[2017-09-27 05:37] LABS: Absolute Monocytes 0.6 K/uL (0.1-1.3); Absolute Neutrophil 6.1 K/uL (1.8-8.0); Basophils % 0.3 % (0-1.3); Eosinophils % 0.8 % (0-4.4); Hematocrit 19.1 % (39.6-49.0); Lymphocytes % 12.3 % (15.3-44.8); MCH 24.4 pg (27.0-35.0); MCV 72.4 fL (80-100); MPV 11.1 fL (7.6-11.3); Monocytes % 8.2 % (3.3-12.3); RBC Red Blood Cell Count 2.63 M/uL (4.33-5.43)
[2017-09-27 05:45] LABS: Albumin 1.4 g/dL (3.4-5.0); Bilirubin Total 0.4 mg/dL (0.2-1.0); Phosphorus 2.3 mg/dL (2.5-4.9); Potassium 4.2 mmol/L (3.5-5.1); Protein, Total 4.6 g/dL (6.4-8.2)
[2017-09-27 06:09] LABS: Anisocytosis 2+; Blood Morphology Comment NOTED (NOT SEEN); Hypochromasia 1+; Urine White Blood Cell Casts OK
[2017-09-27 06:23] LABS: Platelet Estimate DECR
--- NOTE | 2017-09-27 07:07 | RAD REPORT ---
EXAM DESCRIPTION: RAD - Chest Single View - 09/27/2017 6:35 am CLINICAL HISTORY: Respiratory failure, pneumonia COMPARISON: September 26 TECHNIQUE: AP portable chest image was obtained 0622 hours . FINDINGS: Endotracheal tube remains in good position with the tip mid aortic arch level. NG tube ext ends below the diaphragm off the field of view. PICC line remains in place. Dense airspace opacification in each lower lung field and left apex have not changed. Cardiomediastin al silhouette and vasculature also stable. No pneumothorax is seen. No new or enlarging pleural fluid collection. IMPRESSION: Dense bibasilar and left apex airspace opacification similar to prior day study. Tubes and lines remain in good position.
[2017-09-27] MEDS: NYSTATIN 500,000 UNIT/5 ML UDC PO SCH ×4 (08:20→21:00)
[2017-09-27] MEDS ORDERED: POTASS/SODIUM PHOSPHATE 1 PKT POWD.PACK FT SCH (09:00)
[2017-09-27] MEDS ORDERED: FUROSEMIDE 40 MG/4 ML VIAL IV PRN (09:40)
[2017-09-27] MEDS ORDERED: NA CHLORIDE 0.9% 100 ML ONE (10:01)
--- NOTE | 2017-09-27 14:05 | P.PN ---
Subjective Date of Service: 09/27/17 Primary Care Provider: Dr Sanford at the [facility] Chief Complaint: Respiratory failure he is still on vent, barely responsive to verbal Physical Examination - Vital Signs Temperature: 99.6 F Blood Pressure: 146/65 Pulse: 72 Respirations: 19 Pulse Ox (%): 100 - Physical Exam General: Other HEENT: Atraumatic, PERRLA, EOMI Neck: Supple, JVD not distended Respiratory: Clear to auscultation bilaterally, Normal air movement Cardiovascular: Regular rate/rhythm, Normal S1 S2 Gastrointestinal: Normal bowel sounds, No tenderness Musculoskeletal: No tenderness Integumentary: No rashes Neurological: Normal tone, Normal affect Lymphatics: No axilla or inguinal lymphadenopathy - Studies Medications List Reviewed: Yes Assessment And Plan - Current Problems (Diagnosis) (1) ARDS (adult respiratory distress syndrome) Current Visit: Yes Status: Acute (2) Acute renal failure Current Visit: Yes Status: Acute (3) Aspiration pneumonia Current Visit: Yes Status: Acute Qualifiers: Aspiration pneumonia type: due to vomit Laterality: bilateral Lung location: unspecified part of lung Qualified Code(s): J69.0 - Pneumonitis due to inhalation of food and vomit (4) GI bleed Onset Date: 09/15/17 Current Visit: Yes Status: Acute Qualifiers: GI bleed type/associated pathology: melena Qualified Code(s): K92.1 - Melena (5) Hypotensive episode Current Visit: Yes Status: Acute (6) Respiratory failure Current Visit: Yes Status: Acute Qualifiers: Chronicity: acute Respiratory failure complication: hypoxia Qualified Code(s): J96.01 - Acute respiratory failure with hypoxia - Plan cont vent, possible weaning vs withdrawing care wait for POA decsion cont current therapy grave prognosis due to multiple co-mobidities
--- NOTE | 2017-09-28 03:02 | PN ---
Date of Progress Note: 09/27/2017 Subjective: The patient was admitted with acute kidney injury secondary to poor perfusion, ATN ozzie nickerson to septic shock. Currently oliguric, over volume. For that reason, initiated dialysis. Physical Examination: Vital Signs: When I saw the patient, blood pressure of 145/56, pulse 73. The patient started to hav e good urine output. Has 1300 over the last 24 hours. Chest: Clear to auscultation. Heart: S1, S2. Regular. Abdomen: Soft, nontender. Extremities: No edema. Laboratory Data: WBC 7.8, H and H 6.4/19.1, and platelets 45. Sodium 142, potassium 4.2, bicarb 29, BUN 64, creatinine 1.5, calcium of 8, phos of 2. Yesterday creatinine predialysis 1.8. Current Medications: The patient on is include; 1.Cefepime. 2.Nystatin. 3.Ferrous sulfate. 4.Carvedilol 12.5. 5.Guanfacine. 6.Lorazepam. 7.Pantoprazole. 8.Fentanyl. Assessment And Plan: 1.Acute kidney injury secondary to poor perfusion, acute tubular necrosis, oliguric originally, curr ently nonoliguric, euvolemic to normal volume. I am going to monitor the patient. We will repeat ch est x-ray. Then, we will evaluate depending on the fluid status if the patient is going to need furt her dialysis and we will monitor. 2.Hypertension. I am going to go ahead and add Lasix for the patient for better blood pressure cont rol and better volume control, and we will follow up. 3.Bleeding. I agree with the transfusion. We will give Lasix after the transfusion. 4.Anemia secondary to gastrointestinal bleed. We will follow up with the primary. 5.Respiratory failure. Continue supportive care. We will diurese the patient. HUNTER/MODL Voice ID: [id number] Report ID: [id number]
[2017-09-28] MEDS ORDERED: FUROSEMIDE 40 MG/4 ML VIAL IV SCH (09:00)
--- NOTE | 2017-10-28 03:58 | P.DS ---
Discharge Date: 09/28/17 Primary Care Provider: Dr Sanford at the OR Disposition: Reason for Admission: Respiratory failure Consultations: Surgery Pulmonary Nephrology - Problems (1) Hypotensive episode Status: Acute (2) GI bleed Status: Acute (3) Anemia Status: Acute Brief History of Present Illness: This is a 57-year-old male with significant past medical history of hypertension , diabetes, CVA with residual weakness and dementia, CAD, gastric ulcer who presented to the ED from [facility]. Patient had lab work done which was consistent with hemoglobin of 5.9 and thus was sent over to the hospital for further workup. Patient has been having some crack tarry stools at the [facility] as well. Currently patient is unable to provide any information as patient is demented and no family member is at bedside to get more information. Most of the information was collected by the ER physician. ER physician stated that patient does not have any other associated symptoms that they were notified from the correction other than him having low hemoglobin and black tarry stools. Hospital Course: Patient had been running a high blood pressure. But soon after returning from EGD, patient developed hypotension and sepsis. Patient had developed a pneumonia. Most likely aspiration pneumonia. Patient went on the ventilator and they had a very difficult time extubating him. The family had decided that patient did not want to remain on the ventilator if his quality of life was poor. He was extubated on 09/27/2017. He shortly afterwards at 2:10 am on 09/28/2017. Patient peacefully. Vital Signs/Physical Exam: Home Medications: Acetaminophen with Codeine [Acetaminophen-Cod #3 Tablet] 1 each PO Q8H 09/14/17 Amlodipine Besylate [Norvasc] 10 mg PO DAILY 09/14/17 Aspirin [Aspirin EC 81 MG] 81 mg PO DAILY 09/14/17 Carvedilol [Coreg] 25 mg PO BID 09/14/17 Clopidogrel Bisulfate [Plavix] 75 mg PO DAILY 09/14/17 Doxazosin [Cardura] 2 mg PO BID 09/14/17 Ferrous Sulfate [Feosol] 65 mg PO BID 09/14/17 Glucerna 1.5 Nelson 60 ml FT CONT 09/14/17 Guanfacine HCl [Tenex] 2 tab PO BEDTIME 09/14/17 Hydralazine [Apresoline] 10 mg PO TID 09/14/17 Lactobacillus Acidophilus [Acidophilus] 1 each PO DAILY 09/14/17 Minocycline HCl [Minocin] 100 mg PO BID 09/14/17 Smz./Tmp. [Bactrim Ds 800 MG/160 MG] 1 tab PO BID 09/14/17 Patient Discharge Instructions: BODY RELEASED TO THE HOME Time spent managing pt's care (in minutes): 20
== END 2017-09-28 02:12 | disposition expired | DRG 377 ==
LOC: ER 12:27 → ERHOLD 16:15 → 4TH 18:09 → 3RD-ICU 09-16 14:49
PROVIDERS: ADMIT Family Medicine; ATTEND Internal Medicine Hematology & Oncology
PROC: 30233N1 Transfusion of Nonautologous Red Blood Cells into Peripheral Vein, Percutaneous Approach (ICD-10-PCS; 2017-09-15)
PROC: 0DB78ZX Excision of Stomach, Pylorus, Via Natural or Artificial Opening Endoscopic, Diagnostic (ICD-10-PCS; 2017-09-16)
PROC: 0BH17EZ Insertion of Endotracheal Airway into Trachea, Via Natural or Artificial Opening (ICD-10-PCS; 2017-09-16)
PROC: 5A1955Z Respiratory Ventilation, Greater than 96 Consecutive Hours (ICD-10-PCS; 2017-09-16)
PROC: 0DB98ZX Excision of Duodenum, Via Natural or Artificial Opening Endoscopic, Diagnostic (ICD-10-PCS; principal; 2017-09-16 12:00)
PROC: 02HV33Z Insertion of Infusion Device into Superior Vena Cava, Percutaneous Approach (ICD-10-PCS; 2017-09-18)
PROC: 3E043XZ Introduction of Vasopressor into Central Vein, Percutaneous Approach (ICD-10-PCS; 2017-09-19)
PROC: 30233R1 Transfusion of Nonautologous Platelets into Peripheral Vein, Percutaneous Approach (ICD-10-PCS; 2017-09-21)
PROC: 06HM33Z Insertion of Infusion Device into Right Femoral Vein, Percutaneous Approach (ICD-10-PCS; 2017-09-21)
PROC: 5A1D70Z Performance of Urinary Filtration, Intermittent, Less than 6 Hours Per Day (ICD-10-PCS; 2017-09-21)
DX: K92.1 Melena (principal); J69.0 Pneumonitis due to inhalation of food and vomit; J96.01 Acute respiratory failure with hypoxia; A41.9 Sepsis, unspecified organism; R65.21 Severe sepsis with septic shock; N17.0 Acute kidney failure with tubular necrosis; J15.5 Pneumonia due to Escherichia coli; G93.41 Metabolic encephalopathy; E43 Unspecified severe protein-calorie malnutrition; D62 Acute posthemorrhagic anemia; I69.351 Hemiplegia and hemiparesis following cerebral infarction affecting right dominant side; E87.0 Hyperosmolality and hypernatremia; J80 Acute respiratory distress syndrome; E87.2 Acidosis; I13.0 Hypertensive heart and chronic kidney disease with heart failure and stage 1 through stage 4 chronic kidney disease, or unspecified chronic kidney disease; I46.9 Cardiac arrest, cause unspecified; I69.991 Dysphagia following unspecified cerebrovascular disease; R13.10 Dysphagia, unspecified; Z66 Do not resuscitate; Z51.5 Encounter for palliative care; F03.90 Unspecified dementia, unspecified severity, without behavioral disturbance, psychotic disturbance, mood disturbance, and anxiety; I25.10 Atherosclerotic heart disease of native coronary artery without angina pectoris; K44.9 Diaphragmatic hernia without obstruction or gangrene; K29.60 Other gastritis without bleeding; K29.80 Duodenitis without bleeding; E11.22 Type 2 diabetes mellitus with diabetic chronic kidney disease; N18.3 Chronic kidney disease, stage 3 (moderate); E87.6 Hypokalemia; E83.39 Other disorders of phosphorus metabolism; E11.65 Type 2 diabetes mellitus with hyperglycemia; D69.6 Thrombocytopenia, unspecified; I50.9 Heart failure, unspecified; Z79.02 Long term (current) use of antithrombotics/antiplatelets; Z79.82 Long term (current) use of aspirin; Z93.1 Gastrostomy status; Z87.11 Personal history of peptic ulcer disease; L89.151 Pressure ulcer of sacral region, stage 1; Z78.1 Physical restraint status
CPT/HCPCS: 36415; 71045; 76770; 80048; 80053; 80076; 80202; 82043; 82274; 82533; 82550; 82553; 82570; 82805; 82962; 83605; 83615; 83690; 83735; 84100; 84132; 84145; 84156; 84300; 84484; 84550; 85014; 85018; 85025; 85049; 85610; 85730; 86317; 86704; 86706; 86850; 86900; 86901; 87040; 87070; 87077; 87186; 87205; 87340; 87493; 88305; 88312; 90935; 93005; 93971; 94002; 94003; 94760; 96365; 96375; 99285; C9113; J0171; J0330; J0360; J0692; J1170; J1650; J1720; J1940; J2310; J2405; J2543; J3010; J3370; J3475; J7030; J7060; P9016; P9035; P9047